=== PATIENT | male | born 1935 | race African-American/Black ===

== ENCOUNTER 2019-11-06 12:48 | Inpatient (IN) | payer OTHER ==
[~2019-11-06] VITALS: Ht 157.5 cm; Wt 62.6 kg
[2019-11-06 13:09] VITALS: BP 108/54
[2019-11-06 13:45] LABS: ABSOLUTE NEUTROPHILS 8.7 thou/uL (1.4-8.2); BASOPHILS 0.3 % (0.0-2.0); EOSINOPHILS 1.9 % (0.0-3.0); HEMATOCRIT 26.4 % (42.0-52.0); LYMPHOCYTES 6.6 % (24.0-44.0); MCH 32.2 pg (26.0-34.0); MCV 94.6 fL (80.0-100.0); PLATELET COUNT 264 thou/uL (150-400); POLYS 82.2 % (36.0-66.0); RBC 2.79 mil/uL (4.50-6.00); RDW 13.9 % (10.5-14.5); WBC 10.5 thou/uL (4.0-11.0)
[2019-11-06 13:59] LABS: ALBUMIN 3.3 g/dL (3.4-5.0); CREATININE 1.3 mg/dL (0.7-1.3); TOTAL BILIRUBIN 0.5 mg/dL (0.2-1.0); TOTAL PROTEIN 7.2 g/dL (6.4-8.2)
[2019-11-06 14:02] LABS: POTASSIUM 2.6 mmol/L (3.5-5.1)
[2019-11-06 15:20] LABS: URINE BILIRUBIN NEGATIVE (Negative); URINE BLOOD NEGATIVE (Negative); URINE CLARITY CLEAR; URINE COLOR YELLOW; URINE GLUCOSE-RANDOM* NEGATIVE (Negative); URINE KETONES NEGATIVE (Negative); URINE LEUKOCYTES-REFLEX NEGATIVE (Negative); URINE NITRITE-REFLEX NEGATIVE (Negative); URINE PROTEIN (DIPSTICK) NEGATIVE (Negative); URINE SPECIFIC GRAVITY 1.015 (1.005-1.035); URINE UROBILINOGEN 0.2 E.U./dl (0.2-1.0)
[2019-11-06 16:51] VITALS: BP 151/66
[2019-11-06 17:30] LABS: % SATURATION 13 % (20-39); IRON 18 ug/dL (65-175); TIBC 135 ug/dL (250-450)
[2019-11-06 17:54] VITALS: BP 152/76
[2019-11-06 17:59] LABS: FOLIC ACID 12.4 ng/mL (8.6-58.9)
[2019-11-06 18:37] VITALS: BP 150/60
--- NOTE | 2019-11-06 19:38 | NUR ---
RECIEVED REPORT FROM MINH RN AT APPROX 1800; WILL PASS ON TO GRANT RN. PAATIENT IS LYING COMFORTBALY IN BED WITH TV ON. POTASSIUM INFISING ON L UPPER ARM
--- NOTE | 2019-11-07 02:16 | NUR ---
ASSUMED CARE OF PT AT 1900. PT IS A/O X3 WITH FORGETFULLNESS. PT IS UP WITH ASSIST/SBA WITH A CANE. ROOM AIR, SR ON THE MONITOR WITH PAC'S, USES THE URINAL OR TOILET TO VOID, LAST BOWEL MOVEMENT WAS TONIGHT. SKIN APPEARS TO BE VERY DRY. SCRATCHING SKIN TO THE POINT OF CAUSING SMALL ABRAISIONS. BARRIER CREAM AND LOTION APPLIED. PT ACCIDENTALLY DISLODGED IV DUE TO EXCESSIVE SCRATCHING WITH CATHETER INTACT. IV REPLACED. AT THIS TIME PT IS CURRENTLY LYING IN HIS BED AND APPEARS TO BE SLEEPING. FALL PRECAUTIONS ARE IN PLACE, CALL LIGHT IS WITHIN REACH. WILL CONTINUE TO MONITOR.
[2019-11-07 05:36] LABS: ABSOLUTE NEUTROPHILS 9.6 thou/uL (1.4-8.2); BASOPHILS 0.6 % (0.0-2.0); EOSINOPHILS 1.7 % (0.0-3.0); HEMATOCRIT 26.7 % (42.0-52.0); HEMOGLOBIN 8.6 gm/dL (14.0-18.0); LYMPHOCYTES 7.8 % (24.0-44.0); MCH 30.7 pg (26.0-34.0); MCHC 32.4 g/dL (28.0-37.0); MCV 94.9 fL (80.0-100.0); MONOCYTES 8.5 % (1.0-8.0); PLATELET COUNT 254 thou/uL (150-400); POLYS 81.4 % (36.0-66.0); RBC 2.82 mil/uL (4.50-6.00); RDW 14.4 % (10.5-14.5); WBC 11.8 thou/uL (4.0-11.0)
[2019-11-07 06:02] LABS: CALCIUM 8.1 mg/dL (8.5-10.1); CREATININE 1.2 mg/dL (0.7-1.3); MAGNESIUM 1.6 mg/dL (1.8-2.4)
[2019-11-07 09:47] VITALS: BP 126/64
[2019-11-07 16:28] VITALS: BP 158/76
[2019-11-07 19:19] VITALS: BP 142/76
--- NOTE | 2019-11-07 19:40 | NUR ---
Assumed pt care at 7am.Pt in bed resting without c/o.Assessment completed.vss. Bs swallow study done and recommended given by speech therapist noted.Dr Barrera here,order noted.Assisted with tray setup.Good appetite noted.Complete bath and bed change done later this shift.Pt dpoa here,updates given.Pt has bm x2 today.Fall bundle in place for safety.Will continue to monitor.
--- NOTE | 2019-11-08 00:30 | NUR ---
ASSUMED CARE OF PT AT 1900. PT IS A/O X3 AND UP WITH SBA TO THE BR USING A CANE OR WALKER. PT C/O OF NOT LIKING THE TASTE OF THICKENED LIQUIDS AND WANTS REGULAR FLUIDS. EDUCATED THE PT ON THE IMPORTANCE AND RISKS AND BENEFITS. HE AGREES TO CONTINUE ON THICKENED FOR NOW. PT DENIES ANY TYPE OF PAIN OR DISCOMFORT. VOIDS PER URINAL. LYING IN BED AT THIS TIME AND APPEARS TO BE SLEEPING. FALL PRECAUTIONS ARE IN PLACE, CALL LIGHT IS WITHIN REACH. COVID TEST DONE AND TAKEN TO LAB. RESULTS ARE PENDING AT THIS TIME. WILL CONTINUE TO MONITOR.
[2019-11-08 05:26] LABS: CALCIUM 8.1 mg/dL (8.5-10.1); CREATININE 1.1 mg/dL (0.7-1.3); POTASSIUM 4.2 mmol/L (3.5-5.1)
[2019-11-08 08:00] VITALS: BP 98/57
[2019-11-08 19:15] VITALS: BP 127/68
[2019-11-09 03:42] VITALS: BP 146/82
--- NOTE | 2019-11-09 05:17 | NUR ---
PT IS ORIENTED X2-3, BUT VERY FORGETFUL. DENIED ANY PAIN. PT DID NOT SLEEP MUCH DURING THE NIGHT, CALLING OUT FREQUENTLY WITH VARIOUS REQUESTS. HE STATED HE WAS NOT TIRED ENOUGH TO SLEEP. VOIDS PER URINAL. PT HAD 2 BOWEL MOVEMENTS DURING THE NIGHT. FALL PRECAUTIONS IN PLACE. PROGRESSING SLOWLY TOWARD POC GOALS.
[2019-11-09 07:09] VITALS: BP 141/82
--- NOTE | 2019-11-09 08:07 | EKG ---
[facility] [place] [address] [place] [address] ELECTROCARDIOGRAM REPORT Name: ISH FRANKEL Room #: 453-P ADM IN M.R.#: [id number] Admission: 11/06/19 Attend Phys: Curt Barrera MD Discharge: Date of : 34 Report #: [id number] THIS REPORT FOR: cc: Pedro Grove MD, Steven A. MD Santiago, Patrick MD [facility] ~ THIS REPORT FOR: //name// [facility] ED Test Date: 2019-11-06 Test Time: 13:10:51 Pat Name: ISH FRANKEL Department: Room: [facility] Gender: M Fruit Dumper: : 1935 Requested By: Alan Douglass Order Number: [id number] MD: Antelmo Lee Measurements Intervals [place] Rate: 80 P: AL: QRS: 17 QRSD: 138 T: -22 QT: 336 QTc: 388 Interpretive Statements Significant artifact. Recommend repeating Electronically Signed On 11-09-2019 8:06:52 CDT by Antelmo Lee [email or web address] <ELECTRONICALLY SIGNED> By: Antelmo Lee MD, [facility] 11/09/19 0806 1310 1310 Antelmo Lee MD, FACC /EPI
[2019-11-09 09:31] LABS: CALCIUM 8.9 mg/dL (8.5-10.1); CREATININE 1.3 mg/dL (0.7-1.3); POTASSIUM 4.8 mmol/L (3.5-5.1)
[2019-11-09] MEDS ORDERED: COLACE 100 MG100 MG PO (10:13)
[2019-11-09] MEDS ORDERED: AUGMENTIN 500-1 EACH PO (10:13)
[2019-11-09] MEDS ORDERED: B-12500 MCG PO (10:14)
[2019-11-09] MEDS ORDERED: PROTONIX 20 MG20 M1 PO (10:14)
[2019-11-09 15:12] VITALS: BP 120/63
--- NOTE | 2019-11-09 15:25 | NUR ---
PT ADMITTED RELATED TO DEHYDRATION, HYPOKALEMIA. CM REVIEWED CHART AND SPOKE WITH CARE TEAM. CM CALLED AND SPOKE WITH PT OVER THE PHONE THIS AM. PT APPREATED TO BE A&O X4. CM ROLE INTRODUCED. PT INDICATED HE LIVES IN HOUSE WITH HIS JESSI AND APOLINAR. PT INDICATED 2 STEPS TO ENTER AND 12 INSIDE. PT INDICATED HE HAS A FWW AND A SPC FOR USE AT HOME. PT IS RECEPTIVE TO CARE TEAM'S RECOMENDTION FOR POST ACUTE CARE STAY AND ASKED THAT CM SPEAK WITH HIS JESSI REGARDING FACILTIES. ONLY CONTACT LISTED IS HIS NIECE. CM TO CALL HER. CM TO FOLLOW INDICATED WITH DC PLANNING.
[2019-11-09] MEDS ORDERED: CARBIDOPA-LEVO1 EAC9 PO (15:46)
--- NOTE | 2019-11-09 18:32 | NUR ---
ASSUMED PT CARE THIS AM. PT VITAL SIGNS STABLE. PT A&0X2-3, CONFUSION NOTED THROUGHOUT SHIFT, PT CALLED WHEN NEEDED, [employer]. PT UP TO COMMODE. TRACE LOWER EXTREMITY EDEMA NOTED. PT ON TELE, RECORDED. SPEECH EVAL COMPLETED DURING THIS SHIFT. NO PAIN NOTED. PT PLEASANT, USES URINAL. ENDORSED TO NIGHT NURSE.
[2019-11-09 19:13] VITALS: BP 141/63
[2019-11-09 19:20] VITALS: BP 152/90
[2019-11-10 07:38] VITALS: BP 171/92
--- NOTE | 2019-11-10 07:49 | NUR ---
ASSUMED PT CARE AROUND 1930. IMPULSIVE AT TIMES TO GET UP. EASILY REORIENTED. KEPT NPO FOR MRI IN AM. VSS. NO S/S ACUTE DISTRESS NOTED OR REPORTED AT THIS TIME. CARE TRANSFERRED TO AM RN AT THIS TIME.
[2019-11-10 10:45] VITALS: BP 104/66
--- NOTE | 2019-11-10 13:33 | NUR ---
CM FOLOWED UP WITH PT'S NIECE THIS AM TO SEE IF SHE HAD SPOKEN WITH PT'S JESSI REGARDING WHICH FACILITIES THEY WANTED REFERRALS SENT TO FOR POSSIBEL ADMISSION. CHASTITY INDICATED THAT THEY WOULD PREFER PT TO RETURN HOME WITH HOME HEALTH SERVICES RATHER THAN GO TO A FACILITY DUE TO COVID. CM INDICATED THAT CM WOULD NOTIFY PHYSICIAN AND CARE TEAM AND SEE IF THEY FELT THAT WOULD BE APPROPRIATE AND CALL HER BACK. CM NOTIFIED PHYSICIAN OF FAMILY PREFERENCE HE WAS GOING TO REACH OUT TO THEM RELATED TO THE RESULTS OF PT'S MRI TODAY. ANNMARIE INDICATED THEY DIDN'T WANT [facility]. CM TO FOLLOW INDICATED WITH DC PLANNING.
[2019-11-10 14:49] LABS: HEMATOCRIT 27.7 % (42.0-52.0); HEMOGLOBIN 9.1 gm/dL (14.0-18.0); MCH 31.5 pg (26.0-34.0); MCHC 32.7 g/dL (28.0-37.0); MCV 96.2 fL (80.0-100.0); RBC 2.88 mil/uL (4.50-6.00); RDW 14.1 % (10.5-14.5)
[2019-11-10 15:18] VITALS: BP 139/75
--- NOTE | 2019-11-10 18:19 | NUR ---
ASSUMED PT CARE THIS AM. PT ALERT TO SELF, WITH CONFUSION DURING THE DAY ABOUT PLACE, SITUATION. PT BP ELEVATED THIS AM, BUT WHEN STAFF RETOOK BP IT WAS WITHIN NORMAL LIMITS. PT HAD A MRI TODAY. PT ON TELE, RECORDED. IV PATENT. MEDICATIONS TOLERATED WELL. PT ON NECTAR THICKENED LIQUIDS AND MECHANICAL ALTERED DIET WITH NO ISSUES. ENDORSED TO NIGHT NURSE.
[2019-11-10 20:00] VITALS: BP 135/64
--- NOTE | 2019-11-11 05:57 | NUR ---
ASSUMED CARE OF PT AT 1900. PT IS A/O X2 AND IS UP WITH ASSIST TO THE BR OR BSC. PT DENIES PAIN OR DISCOMFORT. VSS. INCONT AT TIMES OF URINE AND BOWEL. C/O BEING THIRSTY. DRINKS PROVIDED. ROOM AIR, SR ON THE MONITOR. FALL PRECAUTIONS ARE IN PLACE, CALL LIGHT IS WITHIN REACH. AT THIS TIME PT IS LYING IN HIS BED WITH HOB ELEVATED AND APPEARS TO BE SLEEPING. WILL CONTINUE TO MONITOR.
[2019-11-11 08:30] VITALS: BP 125/60; BP 135/64
[2019-11-11] MEDS ORDERED: VITAMIN E1000 UNIT PO (13:53)
[2019-11-11] MEDS ORDERED: VITAMIN D31250 MC1 PO (13:55)
[2019-11-11 14:18] VITALS: BP 135/64
[2019-11-11 14:33] VITALS: BP 135/64
--- NOTE | 2019-11-11 14:35 | NUR ---
CARE TEAM INDICATED THAT PT IS MEDICALLY STABLE TO DC HOME THIS DAY. PT IS TO HAVE HOME HEALTH SERVICES PT, OT, ST, AND NURSING. FAMILY INDICATED THAT THEY DIDN'T HAVE A PREFERENCE BUT DIDN'T WANT [facility]. REFERRAL [facility] SENT TO [facility]. THEY ARE ABLE TO ACCEPT. THEY WILL CONTACT PT AND FAMILY TO SET UP INITIAL ASSESSMENT VISIT FOR SOC EITHER TOMORROW OR SATURDAY. PT'S BROTHER IN LAW WILL BE PROVIDING PT TRNASPORT HOME THIS AFTERNOON AROUND 1630. ORDERS FAXED. NO OTHER CM INTERVENTION INIDCATED CASE CLOSED.
--- NOTE | 2019-11-11 14:37 | NUR ---
FAXED REFERRAL TO [facility] SPOKE WITH PASCUAL IN INTAKE SHE RECEIVED REFERRAL AND WILL ACCEPT. FAXED DC ORDERSS/SUMMARY RECEIVED CONFIRMATION AND [facility] WILL CALL PT TO ARRANGE VISITS.
[2019-11-11 15:25] VITALS: BP 135/64
--- NOTE | 2019-11-11 16:57 | NUR ---
PATIENT LEFT UNIT AT 1705 W FAMILY MEMBER. IV DISCONTINUED W BANDAID IN PLACE. D/C INSTRUCTIONS GIVEN TO CAREGIVER. DENIED ANY NEEDS AT TIME OF DISCHARGE.
--- NOTE | 2019-11-11 20:15 | NUR ---
I AGREE WITH NURSING ASSESSMENT DONE BY HUMBERTO/CLOTHES SEPARATOR.
[2019-11-12] MEDS ORDERED: CARBIDOPA-LEVO1 EAC9 PO (10:55)
[2019-11-12] MEDS ORDERED: AUGMENTIN 875-1 EACH PO (11:11)
== END 2019-11-11 17:47 | disposition home health service (06) | DRG 70 ==
LOC: ER 12:48 → 4W 16:26 → EROBS 16:26 → 4W 18:01
PROVIDERS: Emergency Medicine; Nurse Practitioner; Nurse Practitioner Family; ADMIT Hospitalist; ATTEND Hospitalist
DX: G93.41 Metabolic encephalopathy (principal); J18.9 Pneumonia, unspecified organism; E87.6 Hypokalemia; E86.0 Dehydration; R53.1 Weakness; R53.81 Other malaise; E53.8 Deficiency of other specified B group vitamins; E83.42 Hypomagnesemia; N40.0 Benign prostatic hyperplasia without lower urinary tract symptoms; K21.9 Gastro-esophageal reflux disease without esophagitis; I10 Essential (primary) hypertension; E78.5 Hyperlipidemia, unspecified; R62.7 Adult failure to thrive; D63.8 Anemia in other chronic diseases classified elsewhere; R13.10 Dysphagia, unspecified; G20 Parkinson's disease; F02.80 Dementia in other diseases classified elsewhere, unspecified severity, without behavioral disturbance, psychotic disturbance, mood disturbance, and anxiety; K86.89 Other specified diseases of pancreas; R22.9 Localized swelling, mass and lump, unspecified; Z20.828 Contact with and (suspected) exposure to other viral communicable diseases; Z85.46 Personal history of malignant neoplasm of prostate; Z68.25 Body mass index [BMI] 25.0-25.9, adult; Z86.73 Personal history of transient ischemic attack (TIA), and cerebral infarction without residual deficits
CPT/HCPCS: 10045

== ENCOUNTER 2019-12-08 19:26 | Emergency (ER) | payer OTHER ==
[~2019-12-08] VITALS: Ht 175.3 cm; Wt 59.0 kg
[~2019-12-08 19:26] MED LIST: AUGMENTIN 500-1 EACH PO; AUGMENTIN 875-1 EACH PO; B-12500 MCG PO; CARBIDOPA-LEVO1 EAC9 PO; COLACE 100 MG100 MG PO; PROTONIX 20 MG20 M1 PO; VITAMIN D31250 MC1 PO; VITAMIN E1000 UNIT PO
[2019-12-08 20:27] LABS: ABSOLUTE NEUTROPHILS 5.3 thou/uL (1.4-8.2); BASOPHILS 0.4 % (0.0-2.0); EOSINOPHILS 4.6 % (0.0-3.0); HEMATOCRIT 35.5 % (42.0-52.0); HEMOGLOBIN 11.4 gm/dL (14.0-18.0); LYMPHOCYTES 13.2 % (24.0-44.0); MCHC 32.2 g/dL (28.0-37.0); MCV 99.4 fL (80.0-100.0); MONOCYTES 10.5 % (1.0-8.0); POLYS 71.3 % (36.0-66.0); RBC 3.57 mil/uL (4.50-6.00); RDW 15.3 % (10.5-14.5); WBC 7.5 thou/uL (4.0-11.0)
[2019-12-08 20:44] LABS: PLATELET COUNT 193 thou/uL (150-400)
[2019-12-08 20:47] LABS: LARGE PLATELETS OCCASIONAL
[2019-12-08 21:07] LABS: ALBUMIN 3.5 g/dL (3.4-5.0); CALCIUM 9.4 mg/dL (8.5-10.1); CREATININE 1.7 mg/dL (0.7-1.3); TOTAL BILIRUBIN 0.3 mg/dL (0.2-1.0); TOTAL PROTEIN 7.8 g/dL (6.4-8.2)
[2019-12-08 21:15] LABS: URINE BILIRUBIN NEGATIVE (Negative); URINE BLOOD TRACE (Negative); URINE CLARITY CLEAR; URINE COLOR YELLOW; URINE GLUCOSE-RANDOM* NEGATIVE (Negative); URINE KETONES NEGATIVE (Negative); URINE LEUKOCYTES-REFLEX NEGATIVE (Negative); URINE NITRITE-REFLEX NEGATIVE (Negative); URINE PROTEIN (DIPSTICK) 1+ (Negative); URINE UROBILINOGEN 0.2 E.U./dl (0.2-1.0)
[2019-12-08 21:22] LABS: BACTERIA-REFLEX None Seen /HPF (None Seen); CRYSTALS None Seen /LPF (None Seen); HYALINE CASTS 0-3 Few /LPF (None Seen); SQUAMOUS None Seen /LPF (0-3); URINE RBC 0-2 Rare /HPF (0-2); URINE WBC-REFLEX 0-5 Rare /HPF (0-5)
[2019-12-08 22:20] VITALS: BP 149/92
== END 2019-12-08 22:22 | disposition home or self-care (01) ==
LOC: ER 19:26
PROVIDERS: Physician Assistant
DX: E86.0 Dehydration (principal); N17.9 Acute kidney failure, unspecified; I10 Essential (primary) hypertension; E78.5 Hyperlipidemia, unspecified; Z79.899 Other long term (current) drug therapy

== ENCOUNTER 2019-12-22 08:19 | Emergency (ER) | payer OTHER ==
[~2019-12-22] VITALS: Ht 175.3 cm; Wt 59.0 kg
--- NOTE | ~2019-12-22 | EMS ---
[address] [address] EMS Patient Care Report Name: ISH FRANKEL Room #: REG [facility]ILL[facility] uRiz#: [id number] Admission: 12/22/19 Attend Phys: Discharge: Date of : 34 Report #: [id number] THIS REPORT FOR: //name// Report Transmitted: 12/22/2019 08:33 EMS Care Summary [place], [place]/[facility] Incident [id number] @ 12/22/2019 07:39 Incident Location [address] [place], [place] [id number] Patient ISH FRANKEL Male, 84 Years 1935 Patient Address [address] [place], [place] [id number] Patient History Dementia,Hypertension (HTN),Parkinson's Disease,Hyperlipidemia,Arthritis,Bone Cancer,Bronchitis Chronic,Pneumonia,Anemia,Hypotension,Hypothyroidism,Prostate Cancer,Chronic Kidney Disease,Cellulitis, Patient Allergies Penicillin allergy, Patient Medications Multivitamin, Omeprazole, Carbidopa, Loratadine, Losartan, Aspirin, Atorvastatin, Chief Complaint BACK PAIN Disposition Transported No Lights/[place] Dispatch Reason Back Pain (Non-Traumatic) Transported To [facility] Narrative DISPATCHED TO A BACK PAIN. ARRIVED ON SCENE TO [place] [address] EMS Patient Care Report Name: ISH FRANKEL Room #: REG ER Sara#: [id number] Admission: 12/22/19 Attend Phys: Discharge: Date of : 34 Report #: [id number] FAMILY TO FIND MALE PATIENT SITTING IN A RECLINER IN HIS BEDROOM. PATIENT SAID THAT HE WAS HAVING BACK PAIN AFTER A FALL SOMETIME LAST NIGHT. HE WAS UNABLE TO SAY HOW LONG AGO THE FALL WAS BUT SAID THAT HE WAS ABLE TO GETHIMSELF UP AND SIT IN HIS CHAIR. PATIENT SAID PAIN WAS IN HIS LEFT THORACIC AREA AND FELT LIKE NEEDLES BUT DID NOT GO ANYWHERE ELSE. HIS VITALS WERE OBTAINED THEN HE WAS ASSISTED IN STANDING AND SITTING ON THE STAIR CHAIR, SECURED WITH STRAPS AND MOVED TO THE COT AT THE FRONT DOOR. PATIENT WAS THEN ASSISTED IN STANDING AND SITTING ON THE COT, SECURED WITH STRAPS, AND MOVED TO THE AMBULANCE. PATIENT VITALS WERE REOBTAINED AND HE WAS TRANSPORTED TO THE HOSPITAL. HIS VITALS WERE MONITORED ENROUTE. UPON ARRIVAL AT THE HOSPITAL PATIENT WAS MOVED INTO THE ED ROOM 3 ON THE COT AND LIFTED OVER TO THE HOSPITAL BED. PATIENT CARE WAS TURNED OVER TO ED NURSING STAFF. Initial Vitals @07:59P: 84,BP: 174/101,CO: 19,SpO2: 98, @07:50P: 75,R: 16,BP: 161/66,Pain: 6/10,GCS: 15,CO: 9,SpO2: 96,Revised Trauma: 12, @08:10P: 78,R: 16,BP: 181/60,Pain: 6/10,GCS: 15,SpO2: 95,Revised Trauma: 12, Assessments @07:48MENTAL:Person Oriented,Time Oriented,Place Oriented,Event Oriented,SKIN:HEENT:Head/Face: No Abnormalities,Neck/Airway: No Abnormalities,LUNG SOUNDS:General: No Abnormalities,Left Upper: No Abnormalities,Right Upper: No Abnormalities,Left Lower: No Abnormalities,Right Lower: No Abnormalities,ABDOMEN:General: No Abnormalities,Left Upper: No Abnormalities,Right Upper: No Abnormalities,Left Lower: No Abnormalities,Right Lower: No Abnormalities,PELVIS//GI:No Abnormalities,EXTREMITIES:Left Leg: Weakness,Right Leg: Weakness,Capillary Refill: Right Upper: < 2 Sec,Left Arm: No Abnormalities,Right Arm: No Abnormalities,PULSE:Radial: 2+ Normal,NEURO:No Abnormalities, Impression Back Pain Procedures @07:48ALS AssessmentResponse: UnchangedSucceeded Timeline 07:36,Call Received 07:36,Dispatch Notified 07:39,Dispatched 07:40,En Route 07:45,On Scene 07:48,At Patient 07:48,ALS Assessment,Response: UnchangedSucceeded, 07:50,BP: 161/66 M,PULSE: 75,RR: 16 R,SPO2: 96 Ox,ETCO2: ,BG: ,PAIN: 6,GCS: 15, [address] [address] EMS Patient Care Report Name: ISH FRANKEL Room #: REG Sara#: [id number] Admission: 12/22/19 Attend Phys: Discharge: Date of : 34 Report #: [id number] 07:59,BP: 174/101 M,PULSE: 84,RR: R,SPO2: 98 Ox,ETCO2: ,BG: ,PAIN: ,GCS: , 08:01,Depart Scene 08:10,BP: 181/60 M,PULSE: 78,RR: 16 R,SPO2: 95 Ox,ETCO2: ,BG: ,PAIN: 6,GCS: 15, 08:15,At Destination 08:26,Call Closed Disclaimer v1.1 Copyright 2020 Handle This EMS Care Summary contains data elements from the applicable legal record (which may be displayed differently). It is designed to provide pertinent information for the following purposes: continuity of care, clinical quality, and state data reporting. The complete legal record is available to ED staff and administrators of the receiving hospital in [employer] Patient Tracker. All data is provided "as is."
[2019-12-22 12:09] LABS: URINE BILIRUBIN NEGATIVE (Negative); URINE BLOOD NEGATIVE (Negative); URINE CLARITY CLEAR; URINE COLOR YELLOW; URINE GLUCOSE-RANDOM* NEGATIVE (Negative); URINE KETONES NEGATIVE (Negative); URINE LEUKOCYTES-REFLEX NEGATIVE (Negative); URINE NITRITE-REFLEX NEGATIVE (Negative); URINE PROTEIN (DIPSTICK) TRACE (Negative); URINE SPECIFIC GRAVITY 1.025 (1.005-1.035); URINE UROBILINOGEN 0.2 E.U./dl (0.2-1.0)
[2019-12-22 12:19] LABS: ANION GAP 11 mmol/L (7-16); BUN 19 mg/dL (7-18); CALCIUM 8.7 mg/dL (8.5-10.1); CHLORIDE 108 mmol/L (98-107); CO2 20 mmol/L (21-32); CREATININE 1.4 mg/dL (0.7-1.3); GLUCOSE 92 mg/dL (74-106); POTASSIUM 3.2 mmol/L (3.5-5.1); SODIUM 139 mmol/L (136-145)
[2019-12-22 12:36] LABS: HEMATOCRIT 32.5 % (42.0-52.0); HEMOGLOBIN 10.5 gm/dL (14.0-18.0); MCH 31.8 pg (26.0-34.0); MCHC 32.2 g/dL (28.0-37.0); MCV 98.6 fL (80.0-100.0); PLATELET COUNT 187 thou/uL (150-400); RDW 14.2 % (10.5-14.5); WBC 9.2 thou/uL (4.0-11.0)
--- NOTE | 2019-12-22 12:37 | EKG ---
[facility] [place] [address] ELECTROCARDIOGRAM REPORT Name: ISH FRANKEL Room #: REG [facility]#: [id number] Admission: 12/22/19 Attend Phys: Discharge: Date of : 34 Report #: [id number] THIS REPORT FOR: cc: Pedro Grove MD, Steven A. 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: : 1935 Requested By: Ish Valentine Order Number: [id number] MD: Antelmo Lee Measurements Intervals [place] Rate: 77 P: [place]: QRS: 10 QRSD: 88 T: 14 QT: 469 QTc: 531 Interpretive Statements NSR, artifact Ventricular premature complex Consider left ventricular hypertrophy Borderline prolonged QT interval Artifact in lead(s) II,aVR,aVF,V1,V4,V5,V6 Compared to ECG 11/06/2019 13:10:51 Ventricular premature complex(es) now present Electronically Signed On 12-22-2019 12:36:57 HOUSEHOLD APPLIANCE ASSEMBLER by Antelmo Lee [email or web address] <ELECTRONICALLY SIGNED> By: Antelmo Lee MD, FACC 12/22/19 1236 02 02 Antelmo Lee MD, FACC /EPI
[2019-12-22 12:38] LABS: ALBUMIN 2.7 g/dL (3.4-5.0); DIRECT BILIRUBIN 0.2 mg/dL (<0.1-0.2); LIPASE 80 U/L (73-393); SGOT 20 U/L (15-37); SGPT < 6 U/L (30-65); TOTAL BILIRUBIN 0.5 mg/dL (0.2-1.0); TOTAL PROTEIN 6.5 g/dL (6.4-8.2); TROPONIN-I <0.06 ng/mL (<0.06)
[2019-12-22 13:07] LABS: ABSOLUTE NEUTROPHILS 6.7 thou/uL (1.4-8.2); PLATELET ESTIMATE NORMAL
[2019-12-22] MEDS ORDERED: ULTRAM 50MG TAB50 MG PO (14:48)
[2019-12-22] MEDS ORDERED: LEVOFLOXACIN500 MG PO (14:54)
[2019-12-22 15:31] VITALS: BP 177/78
== END 2019-12-22 15:43 | disposition home or self-care (01) ==
LOC: ER 08:19
PROVIDERS: Emergency Medicine
DX: R07.89 Other chest pain (principal); K86.2 Cyst of pancreas; R41.0 Disorientation, unspecified; F03.90 Unspecified dementia, unspecified severity, without behavioral disturbance, psychotic disturbance, mood disturbance, and anxiety; I10 Essential (primary) hypertension; E78.5 Hyperlipidemia, unspecified; Z79.899 Other long term (current) drug therapy; W18.30XA Fall on same level, unspecified, initial encounter; Y93.89 Activity, other specified; Y92.89 Other specified places as the place of occurrence of the external cause; Y99.9 Unspecified external cause status

== ENCOUNTER 2020-01-14 11:10 | Emergency (ER) | payer OTHER ==
[~2020-01-14] VITALS: Ht 177.8 cm; Wt 60.3 kg
[~2020-01-14 11:10] MED LIST changes: +LEVOFLOXACIN500 MG PO; +ULTRAM 50MG TAB50 MG PO
[2020-01-14 11:52] LABS: INR 1.1; PROTIME 11.3 Seconds (9.3-11.4)
[2020-01-14 11:53] LABS: ANION GAP 8 mmol/L (7-16); BUN 18 mg/dL (7-18); CALCIUM 8.7 mg/dL (8.5-10.1); CHLORIDE 106 mmol/L (98-107); CO2 26 mmol/L (21-32); CREATININE 1.7 mg/dL (0.7-1.3); GLUCOSE 90 mg/dL (74-106); SODIUM 140 mmol/L (136-145)
[2020-01-14 11:55] LABS: POTASSIUM 4.1 mmol/L (3.5-5.1)
[2020-01-14 11:57] LABS: BASOPHILS 1.1 % (0.0-2.0); EOSINOPHILS 5.5 % (0.0-3.0); HEMATOCRIT 29.7 % (42.0-52.0); HEMOGLOBIN 9.6 gm/dL (14.0-18.0); LYMPHOCYTES 11.3 % (24.0-44.0); MCH 30.6 pg (26.0-34.0); MCHC 32.3 g/dL (28.0-37.0); MCV 94.8 fL (80.0-100.0); MONOCYTES 9.7 % (1.0-8.0); PLATELET COUNT 247 thou/uL (150-400); POLYS 72.4 % (36.0-66.0); RBC 3.14 mil/uL (4.50-6.00); RDW 13.4 % (10.5-14.5); WBC 6.9 thou/uL (4.0-11.0)
[2020-01-14 12:03] LABS: ALBUMIN 2.8 g/dL (3.4-5.0); SGOT 19 U/L (15-37); SGPT 8 U/L (30-65); TOTAL BILIRUBIN 0.6 mg/dL (0.2-1.0); TOTAL PROTEIN 7.5 g/dL (6.4-8.2); TROPONIN-I <0.06 ng/mL (<0.06)
[2020-01-14] MEDS ORDERED: LOSARTAN POTASS50 MG PO (12:03)
[2020-01-14] MEDS ORDERED: OMEPRAZOLE 20 M20 M1 PO (12:03)
[2020-01-14] MEDS ORDERED: ATORVASTATIN CA10 MG PO (12:03)
--- NOTE | 2020-01-14 12:47 | EKG ---
[facility] [place] [address] ELECTROCARDIOGRAM REPORT Name: ISH FRANKEL Room #: REG [facility].#: [id number] Admission: 01/14/20 Attend Phys: Discharge: Date of : 34 Report #: [id number] THIS REPORT FOR: cc: Pedro Grove MD, Steven A. MD Santiago,Antelmo [facility] ~ THIS REPORT FOR: //name// [facility] ED Test Date: 2020-01-14 Test Time: 11:49:48 Pat Name: ISH FRANKEL Department: Room: Gender: Barrow Worker: james : 1935 Requested By: Phuong Delgado Order Number: [id number] MD: Antelmo Lee Measurements Intervals [place] Rate: 116 P: 59 MT: 165 QRS: 28 QRSD: 98 T: 147 QT: 460 QTc: 640 Interpretive Statements Sinus tachycardia Paired ventricular premature complexes LVH with secondary repolarization abnormality Prolonged QT interval Baseline wander in lead(s) I,II,aVR Compared to ECG 12/22/2019 11:03:13 Early repolarization now present Electronically Signed On 01-14-2020 12:46:46 DRILL SETUP OPERATOR by Antelmo Lee [email or web address] <ELECTRONICALLY SIGNED> By: Antelmo Lee MD, FACC 01/14/20 1246 1149 1149 Antelmo Lee MD, FAC /EPI
[2020-01-14 13:10] LABS: URINE BILIRUBIN NEGATIVE (Negative); URINE BLOOD NEGATIVE (Negative); URINE CLARITY CLEAR; URINE COLOR YELLOW; URINE GLUCOSE-RANDOM* NEGATIVE (Negative); URINE KETONES NEGATIVE (Negative); URINE LEUKOCYTES-REFLEX NEGATIVE (Negative); URINE NITRITE-REFLEX NEGATIVE (Negative); URINE PROTEIN (DIPSTICK) NEGATIVE (Negative); URINE SPECIFIC GRAVITY 1.015 (1.005-1.035); URINE UROBILINOGEN 0.2 E.U./dl (0.2-1.0)
[2020-01-14 14:55] VITALS: BP 187/88
== END 2020-01-14 14:55 | disposition home or self-care (01) ==
LOC: ER 11:10
PROVIDERS: Physician Assistant
DX: R53.1 Weakness (principal); I10 Essential (primary) hypertension; E78.5 Hyperlipidemia, unspecified; Z79.899 Other long term (current) drug therapy

== ENCOUNTER 2020-07-22 01:08 | Inpatient (IN) | payer OTHER ==
[~2020-07-22] VITALS: Ht 175.3 cm; Wt 66.7 kg
[2020-07-22] VITALS (7 sets, daily range): BP systolic 109–169; BP diastolic 60–78
--- NOTE | ~2020-07-22 | HC ---
[facility] [place] [address] CONSULTATION Name: ISH FRANKEL Room #: 455-P ADM IN M.R.#: [id number] Admission: 07/22/20 Attend Phys: Jayden Figueroa MD Discharge: Date of : 34 Report #: [id number] THIS REPORT FOR: cc: Pedro Grove MD, Steven A. MD Al-Absi,Estrella Villavicencio MD ~ DOC #: [id number] Estrella Garcia MD REASON FOR CONSULTATION: Elevated creatinine. REASON FOR THE PRESENTATION: Brought by his family after a syncopal episode. HISTORY OF PRESENT ILLNESS: Obtained from the medical chart. The patient has dementia, Parkinson disease and is not able to provide me with any history. He is known to have hypertension. He was brought by his family members after being found down. No further details are available. He was found to have an elevated creatinine at 2.7. The patient was evaluated during the of 2019, three times during the month of November, December, January and at that time, his creatinine used to be anywhere from 1.4-1.7. I was consulted to manage his acute kidney injury. PAST MEDICAL HISTORY: 1. Hypertension. 2. Hyperlipidemia. 3. Parkinson disease. 4. Dementia. PAST SURGICAL HISTORY: Unobtainable due to the patient's current mental status. SOCIAL HISTORY: Unable to obtain due to the patient's current mental status. FAMILY HISTORY: Unable to obtain given the patient's current mental status. REVIEW OF SYSTEMS: Unable to obtain given the patient's current mental status. PHYSICAL EXAMINATION: VITAL SIGNS: Temperature 36.2, pulse rate is 59, blood pressure is 141/73. HEAD AND NECK: No jugular venous distention. CHEST: No crackles. CARDIOVASCULAR: No rubs detected. ABDOMEN: Soft, nontender. EXTREMITIES: Lower extremities, no edema with intact peripheral pulses. LABORATORY VALUES: From yesterday revealed a sodium of 144, potassium 4.3, BUN 30, creatinine of 2.7. [facility] [address] [place] [address] CONSULTATION Name: JOSTINISH Rivera Room #: 455-P ADM IN M.R.#: [id number] Admission: 07/22/20 Attend Phys: Jayden Figueroa MD Discharge: Date of : 34 Report #: [id number] revealed potential volvulus of the sigmoid. ASSESSMENT, IMPRESSION AND PLAN: 1. Acute kidney injury. 2. Chronic kidney disease. 3. Sigmoid volvulus. 4. Pancreatic mass. 5. The patient's acute kidney injury seems to be related to dehydration episode. 6. Status post flexible sig. Decompression was performed. 7. Continue with IV fluid. 8. Hold blood pressure medications. 9. Monitor renal function. 10. We will continue to follow during his hospital stay. Estrella Garcia MD AIA/STAN By: 0455 1858 Estrella Garcia MD /lui
[~2020-07-22 01:08] MED LIST changes: +ATORVASTATIN CA10 MG PO; +LOSARTAN POTASS50 MG PO; +OMEPRAZOLE 20 M20 M1 PO
[2020-07-22 02:11] LABS: ABSOLUTE NEUTROPHILS 12.5 thou/uL (1.4-8.2); BASOPHILS 0.1 % (0.0-2.0); EOSINOPHILS 0.1 % (0.0-3.0); HEMATOCRIT 29.9 % (42.0-52.0); HEMOGLOBIN 9.7 gm/dL (14.0-18.0); LYMPHOCYTES 4.3 % (24.0-44.0); MCHC 32.3 g/dL (28.0-37.0); MCV 95.9 fL (80.0-100.0); MONOCYTES 6.2 % (1.0-8.0); PLATELET COUNT 195 thou/uL (150-400); POLYS 89.3 % (36.0-66.0); RBC 3.12 mil/uL (4.50-6.00); RDW 13.5 % (10.5-14.5)
[2020-07-22 02:12] LABS: URINE BILIRUBIN NEGATIVE (Negative); URINE BLOOD TRACE (Negative); URINE CLARITY CLEAR; URINE COLOR YELLOW; URINE GLUCOSE-RANDOM* NEGATIVE (Negative); URINE KETONES TRACE (Negative); URINE LEUKOCYTES-REFLEX NEGATIVE (Negative); URINE NITRITE-REFLEX NEGATIVE (Negative); URINE PROTEIN (DIPSTICK) NEGATIVE (Negative); URINE SPECIFIC GRAVITY 1.015 (1.005-1.035)
[2020-07-22 02:15] LABS: ANION GAP 15 mmol/L (7-16); BUN 30 mg/dL (7-18); CALCIUM 8.7 mg/dL (8.5-10.1); CHLORIDE 108 mmol/L (98-107); CO2 21 mmol/L (21-32); CREATININE 2.7 mg/dL (0.7-1.3); GLUCOSE 91 mg/dL (74-106); POTASSIUM 4.3 mmol/L (3.5-5.1); SODIUM 144 mmol/L (136-145)
[2020-07-22 02:26] LABS: ALBUMIN 3.2 g/dL (3.4-5.0); LIPASE 116 U/L (73-393); MAGNESIUM 1.8 mg/dL (1.8-2.4); SGOT 11 U/L (15-37); SGPT 12 U/L (30-65); TOTAL BILIRUBIN 0.8 mg/dL (0.2-1.0); TOTAL PROTEIN 7.4 g/dL (6.4-8.2); TROPONIN-I <0.06 ng/mL (<0.06)
[2020-07-22] MEDS ORDERED: PROTONIX 20 MG20 M1 PO (02:36)
--- NOTE | 2020-07-22 04:29 | NUR ---
EDMAR, PT SISTER IN LAW AND [facility]- [phone]
--- NOTE | 2020-07-22 05:51 | NUR ---
Attempted to call report to medical floor. Nurse is in room. Will call back.
[2020-07-22] MEDS ORDERED: CLARITIN10 M3 PO (05:58)
[2020-07-22] MEDS ORDERED: OMEPRAZOLE20 M2 PO (05:58)
[2020-07-22] MEDS ORDERED: ASA81BEC PO (05:58)
--- NOTE | 2020-07-22 07:06 | EKG ---
[place] [address] [address] [place] [address] ELECTROCARDIOGRAM REPORT Name: ISH FRANKEL Room #: 455-P ADM IN M.R.#: [id number] Admission: 07/22/20 Attend Phys: Nicholas Lemons Discharge: Date of : 34 Report #: [id number] [facility] ED Test Date: 2020-07-22 Test Time: 01:14:44 Pat Name: ISH FRANKEL Department: Room: 455 Gender: M Senior Control Systems Engineer: CHOLO : 1935 Requested By: Rosanne Lindsey Order Number: [id number] MD: Antelmo Lee Measurements Intervals [place] Rate: 85 P: 16 SC: 147 QRS: 24 QRSD: 63 T: -28 QT: 405 QTc: 482 Interpretive Statements NSR Probable left atrial enlargement Probable LVH with secondary repol abnrm Borderline prolonged QT interval Compared to ECG 01/14/2020 11:49:48 Sinus tachycardia no longer present Ventricular premature complex(es) no longer present Electronically Signed On 07-22-2020 7:06:04 CDT by Antelmo Lee [email or web address] <ELECTRONICALLY SIGNED> By: Antelmo Lee MD, [facility] 07/22/20 0706 3 Antelmo Lee MD, [facility] /EPI
--- NOTE | 2020-07-22 14:02 | NUR ---
PT ADMITTED RELATED TO NEAR SYNCOPE, ACUTE RENAL FAILURE, DEHYDRATION. CM REVIEWED CHART AND SPOKE WITH CARE TEAM. CM MET WITH PT AT BEDSIDE THIS DAY. PT APPEARS TO BE A&O 4. CM ROLE INTRODUCED. PT INDICATED HE LIVES IN A HOUSE WITH HIS JESSI AND APOLINAR. PT INDICATED THERE ARE 2 STEPS TO ENTER AND NONE HE HAS TO USE INSIDE. PT INDICATED HE HAS A FWW AND A CANE FOR HOME USE. PT INDICATED HIS PCP IS DR. ROCK CONTRERAS. CANDY CHHAYA IS PT'S DPOA AND LEAH PRATT IS HIS NIECE AND SHE IS ALSO VERY SUPPORTIVE AND INVOLVED IN HIS CARE. [facility]. PLAN WOULD BE FOR PT TO DC HOME ONCE MEDICALLY STABLE. PT'S DPOA IS GOING TO REACH OUT TO PCP'S OFFICE TO HAVE PAPERWORK FAXED TO UNIT. PT HAD SIGMOID COLONOSCOPY THIS DAY. CARE TEAM INDICATED LIKELY NO DC OVER THE WEEKEND. CM FOLLOWING REGARDING DC PLANNING.
--- NOTE | 2020-07-22 16:15 | NUR ---
ASSUMED CARE OF PATIENT AT SHIFT CHANGE. PATIENT ADMITTED FROM ED THIS MORNING FOR A NEAR SYCOPAL EPISODE, ACUTE RENAL INJURY AND DEHYDRATION. PATIENT IS RECIEVING FLUIDS ON R EJ AT 126 ML/HR W NO ISSUES. PATIENT VOIDING PER URINAL AND ALSO GETS UP SBA W GB AND WALKER AND TOLERATES WELL. PATIENT HAD A FLEX COLONOSCOPY THIS MORNING AND RETURNED AROUND NOON; SEE NOTES. BLOOD TINGED URINE NOTED THIS SHIFT; PATIENT WAS STRAIGHT CATHERIZED IN ED. PATIENT TOLERATED CLEAR LIQUIDS WELL; PROVIDER ADVANCED DIET. FAMILY VISITED W PATIENT EARLIER THIS DAY AND HELPED WITH ADMISSION. FALL PRECAUTIONS IN PLACE. PATIENT DOES USE CALL BUTTON INDICATED; A&OX2-3 WITH SOME NOTED FORGETFULNESS. ENDORSED TO RN; WILL CONTINUE TO MONITOR
--- NOTE | 2020-07-23 04:08 | NUR ---
Pt. rested quietly at intrvals during the night when checked on during frequent rounds. He offers no c/o pain. Ambulated to the bathroom with assist of one person,walker and gait belt. Bed alarm is on.
[2020-07-23 07:28] VITALS: BP 151/75
--- NOTE | 2020-07-23 10:53 | NUR ---
Received awake on bed. Due medications given as prescribed. On room air. Vital signs stable. On telemetry; no complains and signs of chest pain, crushing sensation and heaviness. Assisted in ADLs. On clear liquids, assisted and encouraged in eating and drinking; offered snacks as well; no nausea, no vomiting and no abdominal pain noted. Contient of bowel and bladder, able to go to the toilet with standby assist. Falls bundle in place. With NS at 126cc/hr, infusing well at R EJ. Pt able to sit out on the chair, with gait belt and walker. With SL at L AC. No complains of pain made during assessment. To continue monitoring patient.
--- NOTE | 2020-07-23 11:11 | P ---
[facility] [place] [address] PROCEDURE REPORT Name: ISH FRANKEL Room #: 455-P ADM IN M.R.#: [id number] Admission: 07/22/20 Attend Phys: Jayden Figueroa MD Discharge: Date of : 34 Report #: [id number] THIS REPORT FOR: cc: Pedro Grove MD, Steven A. MD McElhinney, Christian C. MD ~ DOC #: [id number] cc: ANGELINA Torres MD DATE OF SERVICE: 07/22/2020 PROCEDURE PERFORMED: Flexible sigmoidoscopy with decompression. HISTORY OF PRESENT ILLNESS: The patient is an 84-year-old male with recent abdominal pain, near syncopal episode. He is a poor historian, who was having increasing abdominal pain and distention. A CT scan of the abdomen and pelvis was performed early this morning on admission showing changes consistent with a possible sigmoid volvulus with a large amount of gas in the volvulus segment, small amount of gas and stool present in the rectum. He has got an unchanged pancreatic atrophy with small mass in the distal tail of the pancreas, unchanged from prior MRI study. Plan is for flexible sigmoidoscopy with decompression. DESCRIPTION OF PROCEDURE: The risks and benefits of the procedure were explained to the patient's DPOA, those risks including but not limited to bleeding, perforation and the risk of sedation. He understood these risks and gave informed consent. Sedation was given using propofol per anesthesia. Next, a digital rectal exam was initially performed, which was normal. Next, using a pediatric Olympus colonoscope, the scope was placed in the patient's anus and advanced under direct vision into the distal sigmoid colon, at which point a twist was noted consistent with a sigmoid volvulus. I was able to advance the scope through this area without difficulty, proximal to the volvulus of the colon was fairly significantly dilated. There was not a large amount of stool in this area. I performed decompression of the sigmoid colon. I was unable to advance the scope into likely the distal ascending colon, at which point a moderate amount of solid stool was encountered. I was not able to advance the scope any further. I then slowly withdrew the scope to transverse, descending colon and sigmoid colon, mucosa were normal. No polyps or masses were seen. I decompressed the entire area well. The rectal mucosa in the areas that were visualized were normal as well. At this point, the scope was then withdrawn and the procedure terminated. The patient tolerated the procedure well. IMPRESSION: Changes consistent with sigmoid colon volvulus, status post decompression. RECOMMENDATIONS: Dr. Stanford, from Surgery has been consulted, would consider the [address] [address] PROCEDURE REPORT Name: ISH FRANKEL Room #: 455-P [facility] IN M.R.#: [id number] Admission: 07/22/20 Attend Phys: Jayden Figueroa MD Discharge: Date of : 34 Report #: [id number] possibility of surgical correction as this can be recurrent in the future. Thank you for allowing me to participate in his care. Joseph Garcia MD CCM/KRYSTAL/LORI <ELECTRONICALLY SIGNED> By: Joseph Garcia MD 07/23/20 1111 1100 2329 Joseph Garcia MD /nt
[2020-07-23 15:16] VITALS: BP 150/80
[2020-07-23 20:09] VITALS: BP 173/90
--- NOTE | 2020-07-24 04:36 | NUR ---
PATIENT AOX1 CONFUSED AND FORGETFUL. PATIENT AMBULATES TO THE BATHROOM WITH STEADY GAITS. PATIENT ON CLEAR LIQUID BUT WAS DEMANDING FOR COFFEE, PATIENT EDUCATED ON WHAT HE IS SUPPOSED TO DRINK. NO SYNCOPE THIS SHIFT. FALL PECAUTION IN PLACE. PATIENT IN BED ASLEEP AT THIS TIME BREATHING REGULAR AND UNLABOURED.
[2020-07-24 05:28] LABS: HEMATOCRIT 33.5 % (42.0-52.0); HEMOGLOBIN 10.8 gm/dL (14.0-18.0); MCH 30.7 pg (26.0-34.0); MCHC 32.1 g/dL (28.0-37.0); MCV 95.5 fL (80.0-100.0); RBC 3.51 mil/uL (4.50-6.00); RDW 13.4 % (10.5-14.5); WBC 6.1 thou/uL (4.0-11.0)
[2020-07-24 05:46] LABS: ALBUMIN 2.8 g/dL (3.4-5.0); CALCIUM 8.6 mg/dL (8.5-10.1); PHOSPHORUS 2.5 mg/dL (2.5-4.9); POTASSIUM 3.9 mmol/L (3.5-5.1)
[2020-07-24 05:52] LABS: CREATININE 1.4 mg/dL (0.7-1.3)
[2020-07-24 08:51] VITALS: BP 119/76
--- NOTE | 2020-07-24 18:14 | NUR ---
ASSUMED PATIENT CARE AT 1030. A/0 X3. DENIES PAIN, NO N/V. AMBULATED IN ROOM AND HALLWAY GAIT STEADY. PATIENT HAD BM TODAY. PROGRESSING TOWARDS POC GOALS.
[2020-07-24 19:41] VITALS: BP 150/82
--- NOTE | 2020-07-25 02:50 | NUR ---
ASSUMED CARE OF PT AT SHIFT CHANGE. PT IS AOX3 AND CALLS APPROPRIATELY AT TIMES. FALL PRECAUTION IN PLACE. PT DENIED PAIN, NAUSEA OR SOA. ASSESSMENT CHARTED. NO SYNCOPAL EPISODE NOTED. PT RAN SR/SA ON TELE. PT WAS ABLE TO GET COMFORTABLE AND SLEEP PART OF THE SHIFT. VSS AND NO S/S OF ACUTE DISTRESS. WILL CONTINUE TO MONITOR.
[2020-07-25 05:36] LABS: HEMATOCRIT 28.1 % (42.0-52.0); HEMOGLOBIN 9.2 gm/dL (14.0-18.0); MCH 31.1 pg (26.0-34.0); MCHC 32.8 g/dL (28.0-37.0); RBC 2.96 mil/uL (4.50-6.00); RDW 13.2 % (10.5-14.5); WBC 5.7 thou/uL (4.0-11.0)
[2020-07-25 05:59] LABS: ALBUMIN 2.5 g/dL (3.4-5.0); CALCIUM 8.1 mg/dL (8.5-10.1); CREATININE 1.4 mg/dL (0.7-1.3); PHOSPHORUS 2.5 mg/dL (2.6-4.7); POTASSIUM 3.7 mmol/L (3.5-5.1)
[2020-07-25 07:30] VITALS: BP 156/87
--- NOTE | 2020-07-25 10:16 | NUR ---
ASSUMED CARE OF PT AT 0700 THIS MORNING. PT WAS ADMITTED FOR DEHYDRATION AND NEAR SYNCAPAL EPISODE. PT IS A/OX3 WITH SOME FORGETFULNESS. LUNGS ARE CLEAR ALL, SKIN INTACT W/D/ATR. ASSESSMENTS CHARTED OTHERWISE UNRTEMARKABLE, CALL LIGHT AND OTHER NEEDS ARE PLACE WITHIN REACH. IV IN RIGHT EJ. MEDS AND TX GIVEN NEEDED AND SCHEDULED.
[2020-07-25 11:28] VITALS: BP 156/87
[2020-07-25 14:19] VITALS: BP 156/87
--- NOTE | 2020-07-25 14:30 | NUR ---
CARE TEAM INDICATED THAT PT IS MEDICALLY STABLE TO DC HOME THIS DAY. CM CALLED AND SPOKE WITH PT'S HC DPADIEL GUPTA AND HIS NIECE CHASTITY. THEY ARE AWARE AND AGREABLE WITH DC HOME THIS DAY. CM SENT REFERRAL TO [facility] PER THEIR REQUEST. A IS ABLE TO ACCEPT. CM TO FAX ORDERES. PT'S NIECE TO PROVIDE TRANSPORT HOME THIS EVENING BETWEEN [phone]. PT HAS A NEEDED DME. NO OTHER CM INTERVENTION INDICATED AT THIS TIME. CASE CLOSED.
[2020-07-25 15:40] VITALS: BP 127/76
[2020-07-25 19:44] VITALS: BP 156/87
--- NOTE | 2020-07-25 19:45 | NUR ---
Assumed pt care at 1900. A/OX3,able to make needs known. VSS. Pt discharged home with HH/grandson via WC accompanied by staff at 1935. Bag of medications sent with pt.
== END 2020-07-25 19:35 | disposition home health service (06) | DRG 344 ==
LOC: ER 01:08 → 4W 04:20 → EROBS 04:20 → 4W 06:11
PROVIDERS: Emergency Medicine; Hospitalist; ADMIT Internal Medicine; ATTEND Internal Medicine
PROC: 0D9N8ZZ Drainage of Sigmoid Colon, Via Natural or Artificial Opening Endoscopic (ICD-10-PCS; principal; 2020-07-22)
DX: K56.2 Volvulus (principal); J18.9 Pneumonia, unspecified organism; N17.9 Acute kidney failure, unspecified; E87.2 Acidosis; K86.9 Disease of pancreas, unspecified; G20 Parkinson's disease; F02.80 Dementia in other diseases classified elsewhere, unspecified severity, without behavioral disturbance, psychotic disturbance, mood disturbance, and anxiety; I16.0 Hypertensive urgency; E78.5 Hyperlipidemia, unspecified; D63.1 Anemia in chronic kidney disease; E86.0 Dehydration; I12.9 Hypertensive chronic kidney disease with stage 1 through stage 4 chronic kidney disease, or unspecified chronic kidney disease; N18.9 Chronic kidney disease, unspecified; E83.42 Hypomagnesemia; E87.6 Hypokalemia; Z20.822 Contact with and (suspected) exposure to COVID-19; Z79.899 Other long term (current) drug therapy
CPT/HCPCS: 10045; 62110; 62900; 70005

== ENCOUNTER 2020-08-29 07:57 | Inpatient (IN) | payer OTHER ==
[2020-08-29] VITALS (7 sets, daily range): BP systolic 148–195; BP diastolic 81–104
[~2020-08-29] VITALS: Ht 170.2 cm; Wt 61.2 kg
[~2020-08-29 07:57] MED LIST changes: +ASA81BEC PO; +CLARITIN10 M3 PO; +OMEPRAZOLE20 M2 PO
[2020-08-29 08:20] LABS: URINE BILIRUBIN NEGATIVE (Negative); URINE BLOOD NEGATIVE (Negative); URINE CLARITY CLEAR; URINE COLOR YELLOW; URINE GLUCOSE-RANDOM* NEGATIVE (Negative); URINE KETONES NEGATIVE (Negative); URINE LEUKOCYTES-REFLEX NEGATIVE (Negative); URINE NITRITE-REFLEX NEGATIVE (Negative); URINE PROTEIN (DIPSTICK) TRACE (Negative); URINE UROBILINOGEN 0.2 E.U./dl (0.2-1.0)
--- NOTE | 2020-08-29 09:10 | EKG ---
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 Table Attendant: KF : 1934-08-24 Requested By: Darryl Robert Order Number: [id number] MD: Antelmo Lee Measurements Intervals [place] Rate: 77 P: MT: QRS: 10 QRSD: 106 T: 12 QT: 478 QTc: 542 Interpretive Statements NSR, artifact Left ventricular hypertrophy Nonspecific T abnormalities, lateral leads Prolonged QT interval Baseline wander in lead(s) V6 No previous ECG available for comparison Electronically Signed On 08-29-2020 9:09:53 CDT by Antelmo Lee [email or web address] <ELECTRONICALLY SIGNED> By: Antelmo Lee MD, [facility] 08/29/20 0909 0834 3 Antelmo Lee MD, FACC /EPI
[2020-08-29 09:48] LABS: ABSOLUTE NEUTROPHILS 4.9 thou/uL (1.4-8.2); BASOPHILS 0.6 % (0.0-2.0); HEMATOCRIT 30.2 % (42.0-52.0); MCH 30.9 pg (26.0-34.0); MCHC 33.1 g/dL (28.0-37.0); MCV 93.5 fL (80.0-100.0); MONOCYTES 9.1 % (1.0-8.0); PLATELET COUNT 223 thou/uL (150-400); POLYS 73.3 % (36.0-66.0); RBC 3.24 mil/uL (4.50-6.00); RDW 13.7 % (10.5-14.5); WBC 6.7 thou/uL (4.0-11.0)
[2020-08-29 09:55] LABS: CREATININE 1.9 mg/dL (0.7-1.3); POTASSIUM 3.2 mmol/L (3.5-5.1)
[2020-08-29 10:01] LABS: ALBUMIN 3.2 g/dL (3.4-5.0); TOTAL BILIRUBIN 0.5 mg/dL (0.2-1.0); TOTAL PROTEIN 7.8 g/dL (6.4-8.2)
[2020-08-29] MEDS ORDERED: ATORVASTATIN CA10 MG PO (13:37)
[2020-08-29] MEDS ORDERED: CARBIDOPA-LEVO1 EAC9 PO (13:38)
[2020-08-29] MEDS ORDERED: LOSARTAN POTASS50 MG PO (13:39)
[2020-08-29] MEDS ORDERED: OMEPRAZOLE 20 M20 M1 PO (13:39)
--- NOTE | 2020-08-29 16:06 | NUR ---
ASSUMED PT CARE UPON ADMISSION TO UNIT AROUND 1215. PATIENT IS A&OX3 AND ABLE TO MAKE NEEDS KNOWN. UPON ADMISSION TO UNIT, NG TUBE WAS PROTRUDING THROUGH PATIENTS MOUTH. NG TUBE REMOVED AND NEW ONE PLACED. XRAY SHOWED TUBE WAS COILED, WHILE PLATFORM BUILDER WAS STILL IN ROOM, TUBE WAS PLACED AGAIN AND PLATFORM BUILDER INFORMED THIS RN AND ROLL HAND THAT THE NG TUBE WAS IN PLACE AND NOT COILED ANY LONGER. PATIENT WENT TO SURGERY SOON AFTER NG TUBE CONFIRMATION WAS COMPLETE. PATIENT TO BE ON LOW INTERMITTENT SUCTION. FAMILY AT BEDSIDE. ADMISSION CMOPLETED PRIOR TO PATIENT LEAVING FLOOR FOR SURGERY. FALL PRECAUTIONS ARE IN PLACE.
[2020-08-30] VITALS (8 sets, daily range): BP systolic 118–162; BP diastolic 70–81
--- NOTE | 2020-08-30 06:06 | NUR ---
patient aox2/3, patient confused and forgetful. patient denied pain or discomfort.patient has been npo since midnight. fall precaution in place. patient in bed asleep at this time breathing regular and unlaboured.
[2020-08-30 06:37] LABS: HEMATOCRIT 28.7 % (42.0-52.0); HEMOGLOBIN 9.2 gm/dL (14.0-18.0); MCH 31.3 pg (26.0-34.0); MCHC 32.1 g/dL (28.0-37.0); MCV 97.6 fL (80.0-100.0); RBC 2.94 mil/uL (4.50-6.00); RDW 14.1 % (10.5-14.5); WBC 8.4 thou/uL (4.0-11.0)
[2020-08-30 06:53] LABS: CALCIUM 8.3 mg/dL (8.5-10.1); CREATININE 1.5 mg/dL (0.7-1.3); MAGNESIUM 1.4 mg/dL (1.8-2.4); POTASSIUM 3.1 mmol/L (3.5-5.1)
--- NOTE | 2020-08-30 14:09 | NUR ---
ASSUMED PT ARE THIS AM. PT A&OX3, DOES NOT MAKE ALL NEEDS KNOWN BUT IS CLOSE TO THE NURSES STATION FOR FREQUENT MONITORING. PATIENT HAD SURGERY THIS DAY FOR A SIGMOIDECTOMY AND A COLOSTOMY. PATIENT RETURNED FROM SURGERY AND REMOVED COLOSTOMY BAG, NEW BAG PLACED DRAINING LIGHT BROWN STOOL. PATIENT IV PATENT TO RIGHT UPPER ARM, FLUIDS INFUISING. PATIENT DENIES NAUSEA, NUMBNESS, OR TINGLING. FALL PRECAUTIONS ARE IN PLACE, CALL LIGHT WITHIN REACH. PATIENT HAS A CONWAY CATHETER. ON ROOM AIR.
--- NOTE | 2020-08-30 15:49 | NUR ---
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 CM REVIEWED CHART AND SPOKE WITH CARE TEAM. HAD FLEX SIG YESTERDAY. PT WENT FOR SIGMOIDECTOMY AND COLOSTOMY PLACEMENT THIS DAY. PT RESIDES IN A HOUSE WITH HIS SISTER IN LAW AND BROTHER IN LAW. PT HAS A FWW AND A CANE TO ASSIST WITH MOBILITY. PT HAD DISCHARGE HOME REC[facility]. PT'S DPOA IS CANDY SHAVER , PT RESIDES WITH [facility] . PT HAS NIECE CHASTITY PRATT WHO LIVES LOCALLY AND IS INVOLVED IN PT'S CARE WELL. PT HAD BEEN ON SERVICE WITH [facility] BUT WAS DISCHARGE A FEW DAYS AGO. FAMILY INDICATED THAT PLAN IS FOR PT TO RETURN HOME ONCE MEDICALLY STABLE. THE ARE RECEPTIVE TO HH SERVICES WITH [facility] AGAIN ONCE MEDICALLY STABLE. FAMILY WOULD LIKE [facility] TO SEE IF PT MIGHT QUALIFY FOR [facility] MEDICAID FOR POSSIBLE HCBS. CM EMAILED [facility] TO ASSESS. CM FOLLOWING REGARDING DC PLANNING.
[2020-08-31 01:36] VITALS: BP 158/85
--- NOTE | 2020-08-31 04:44 | NUR ---
ASSUMED PT AT 1925. PT IS ALERT AND ORIENTED TO SELF. PT HAS SIXTEEN ANDRE WHICH ARE STILL DRY INTACT WITH A GAUZE AND A TRANSPARENT DRSG. THERE WAS NO SIGN OF REDNESS OR SWELLING AROUND THE SITE. PT'S COLOSTOMY BAG CHANGED DUE TO LEAKAGE; STOMA IS BRIGHT RED AND PROTRUDING. PT NOT ABLE TO VERBALIZE NEEDS AND CAN BE INCOHERENT WHEN TALKING. FALL PRECAUTIONS IN PLACE WITH CALL LIGHT WITHIN REACH WILL CONTINUE TO MONITOR.
[2020-08-31 07:15] VITALS: BP 145/85
[2020-08-31 08:09] LABS: MAGNESIUM 1.4 mg/dL (1.8-2.4); POTASSIUM 3.3 mmol/L (3.5-5.1)
--- NOTE | 2020-08-31 13:14 | P ---
[facility] [place] [address] PROCEDURE REPORT Name: ISH FRANKEL Room #: 452-P ADM IN M.R.#: [id number] Admission: 08/29/20 Attend Phys: Ismael Velasquez MD Discharge: Date of : 34 Report #: [id number] THIS REPORT FOR: cc: Pedro Grove MD, Steven A. MD McElhinney, Christian C. MD ~ cc: Dr. Herrera DATE OF SERVICE: 08/29/2020 PROCEDURE PERFORMED: Flexible sigmoidoscopy with decompression of sigmoid volvulus. HISTORY OF PRESENT ILLNESS: The patient is an 85-year-old male who was admitted with increasing abdominal distention and pain. CT scan of the abdomen and pelvis showing sigmoid volvulus with significant dilation of the sigmoid colon. No evidence of perforation. He underwent a similar appearance last month and was decompressed by myself on 07/22/2020. We discussed the possibility of surgery. Family, because of his history of dementia and other medical problems, decided not to pursue any further intervention at that time. 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 Plan is for decompression. DESCRIPTION OF PROCEDURE: The risks and benefits of the procedure were explained to the patient's family, those risks including but not limited to bleeding, perforation and the risk of sedation. They understood these risks and gave informed consent. Sedation was given using propofol per anesthesia. Next, a digital rectal exam was initially performed, which was normal. Next, using a standard Olympus colonoscope, the scope was placed in the patient's anus and advanced under direct vision into the distal sigmoid colon, at which point there was once again changes of a sigmoid volvulus seen. I was able to advance the scope through the narrowing without difficulty. Once through the narrowing there was significant dilation of the sigmoid colon. I was able to advance the scope into the transverse colon, which showed moderate amount of stool in the dilated portion of the sigmoid colon. Moderate amount of liquid stool was noted. This was all aspirated away. The area was decompressed completely and the scope was then slowly withdrawn. No abnormalities were noted in the rectum. The scope was then withdrawn and the procedure terminated. The patient tolerated the procedure well. 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 RECOMMENDATIONS: 1. Observe the patient post-procedure. 2. Agree with surgery consultation, which has been done. It appears the [address] [address] PROCEDURE REPORT Name: ISH FRANKEL Room #: 452-P [facility] IN M.R.#: [id number] Admission: 08/29/20 Attend Phys: Ismael Velasquez MD Discharge: Date of : 34 Report #: [id number] is willing to consider proceeding with surgery in the near future. Thank you for allowing me to participate in his care. <ELECTRONICALLY SIGNED> By: Joseph Garcia MD 08/31/20 1314 1539 0108 Joseph Garcia MD /nt
--- NOTE | 2020-08-31 13:57 | NUR ---
CM FAXED REFERRAL TO [facility] PER PT AND FAMILY REQUEST FOR POSSIBLE SERVICES UPON ANTICIAPTED DC HOME ONCE MEDICALLY STABLE. CM EMAILED [facility] AND INDICATED THAT PT AND FAMILY WERE INTERESTED IN SEEING IFPT QUALIFIES FOR [facility] MEDICAID. CM FOLLOWING REGARDING DC PLANNING.
[2020-08-31 15:50] VITALS: BP 150/77
--- NOTE | 2020-08-31 19:05 | NUR ---
Assumed pt care this am, vs stable. Colostomy in place draining brown stool, mid line incision with mita c/d/i. Started on clears, diet and medicatiosn are tolerated well. POC followed. endorsed to the night nurse.
[2020-08-31 19:53] VITALS: BP 151/91
--- NOTE | 2020-09-01 02:28 | NUR ---
ASSUMED PT CARE AT 1905. PT WAS SITTING IN RECLINER AND WAS TRANSFERRED TO BED WITH MOD. ASSIST WITH GB AND WALKER. PT IS ALERT AND ORIENTED TO SELF. PT HAS A CONWAY AND A COLOSTOMY TO THE LUQ. ADAPTER RING REPLACED DUE TO LEAKAGE AND ANDRE ARE STILL INTACT AND DRESSED WITH TAGADERM. PT DID NOT VOICE ANY CONCERNS AND NO VISIBLE SGN OF DISTRESS WAS NOTED. FALL PREACAUTIONS IN PPLACE. WILL CONTINUE TO MONITOR,
[2020-09-01 08:19] VITALS: BP 150/92
--- NOTE | 2020-09-01 10:26 | NUR ---
OSTOMY CARE; AWAKE, COOPERATIVE, BROTHER IN LAW AT BS, RECEPTIVE TO EDUCATION,STATES PLAN FOR PT TO GO HOME AND FAMILY WILLING TO ASSIST W/ CARE, POUCH LEAKING, LARGE AMT LIQ BILISH STOOL PRESENT, PERISTOMAL SKIN INTACT, MIDLINE INCISION INTACT WELL APPROXIMATED W/ ANDRE. COVERED W/ TELFA AND TRANSPARENT DRSG, NEW POUCH CISCO HIGH OUTPUT APPLIED AND CONNECTED TO DEP DRAINAGE, TEACHING INFO AND SUPPLIES AT BS, WILL CONT TO FOLLOW RECOMMENDATIONS; CHANGE POUCH Q 3-5 DAYS AND PRN, EMTPY PRN SYNTHETIC PLASTERER AWARE
--- NOTE | 2020-09-01 10:31 | NUR ---
ADDENDUM OSTOMY CARE; STOMA BEEFY RED, BUDDED
[2020-09-01 13:44] VITALS: BP 150/92
--- NOTE | 2020-09-01 15:13 | NUR ---
SOFÍA NURSE CONSULTED TODAY. PT HAD SOME LEAKING OVER NIGHT. SULY DID SOME TEACHING WITH PT'S BRO IN LAW JOSE ROBERTO AT [facility] THIS DAY. PT IS ON CLEAR LIQUID DIET AT THIS TIME. PLAN TO ADVANCE DIET TOLERATED. [facility] IS ABLE TO ACCEPT PT UPON DC. CM FOLLOWING REGARDING DC PLANNING.
[2020-09-01 18:10] LABS: MAGNESIUM 1.6 mg/dL (1.8-2.4); POTASSIUM 3.3 mmol/L (3.5-5.1)
--- NOTE | 2020-09-01 19:20 | NUR ---
Assumed pt care vs stable. Colostomy care done by ostomy nurse, draining dark green fluid. Mid line incision with stapples c/d/i, poc followed , pain is managed with medications partial relief is noted. Pt is alert to self, confused but redirectable. Endorsed to the night nurse.
[2020-09-01 21:30] VITALS: BP 166/84
[2020-09-02 00:26] VITALS: BP 153/72
--- NOTE | 2020-09-02 02:46 | NUR ---
ASSUMED PT CARE AT 1905. PT IS ALERT AND ORIENTED TO SELF. PT HAS A CONWAY AND COLOSTOMY. COLOSTOMY IS DRY AND INTACT. PT'S SISTER CLAIMS PT IS ALERT AND ORIENTED X4 AT HOME AND INDEPENDENT BUT ONLY NEEDS ASSISTANCE WITH SHOWER. PER SISTER" PT MUMBLES IN THE EARLY HOURS OF THE MORNING". PT WAS ABLE TO RECOGNIZE SISTER AND RESPONDED APPROPRIATELY TO HER. PT TRIED TO GET OUT OF BED. FALL PRECAUTIONS IN PLACE WITH CALL LIGHT WITHIN REACH. WILL CONTINUE TO MONITOR.
[2020-09-02 07:27] VITALS: BP 160/88
--- NOTE | 2020-09-02 09:53 | NUR ---
WOUND CONSULT; I WAS CONSULTED TO ASSESS THE OSTOMY SITE. THE OSOMY SITE IS WNL AND IS NOT LEAKING. THE ARCH CUSHION PRESS OPERATOR WILL SEE THIS PATIENT TOMORROW FOR FURTHER EDUCATION. I ANSWERED THE QUESTIONS THE PATIENT/FAMILY HAD. RECOMMENDATIONS; D/C CONSULT.
--- NOTE | 2020-09-02 10:12 | PATH ---
[facility] [address] [place] [address] PATHOLOGY RPT PROCEDURE Name: JOSTINISH Miguel Room #: 452-P ADM IN M.R.#: [id number] Admission: 08/29/20 Date of : 34 Discharge: Report #: [id number] Path Case #: [id number] [facility] Accession Number: [id number] . 01 Material submitted: . sigmoid colon - SIGMOID COLON . 01 Clinical history: . SIGMOID RESECTION COLOSTOMY SIGMOID VOLVULUS . 02 Diagnosis: Large intestine, sigmoid colon, resection: - Attenuated and markedly congested mucosa, history of sigmoid volvulus. - Negative for dysplasia or malignancy. - Margins of resection viable and unremarkable. - Two reactive lymph nodes. (IUV:pit; 08/31/2020) QTP 09/01/2020 1102 Local . 02 Electronically signed: . Tanvi Mendoza MD, Pathologist NPI- [id number] . 01 Gross description: . The specimen is received in formalin, labeled "Ish Frankel sigmoid colon". Received is an unoriented segment of colon measuring 39.8 cm in length and ranges in diameter from 3.2 to 5.4 cm. Both margins are stapled. The serosal surface is pink-robison to pink-robison and glistening in appearance. The attached pericolic fat measures up to 2.0 cm in thickness. The specimen is opened along the antimesenteric line to reveal pink-silva to pink-robison, edematous mucosa with minimal architectural folds. No distinct nodules or lesions are noted grossly. Sectioning through the attached pericolic fat reveals two readily identifiable lymph nodes measuring 0.3 and 0.5 cm in maximum dimensions. The specimen is submitted representatively as follows: . A1-A2 both margins A3-A4 customer relations representative sections of colonic mucosa A5 intact lymph nodes. (CAA; 08/30/2020) . After initial examination, the specimen is reexamined. Diverticula are not grossly identified. Additional customer relations representative sections of flattened mucosa are submitted in cassettes A6 and A7. (CAA; 08/31/2020) [place] [address] PATHOLOGY RPT PROCEDURE Name: ISH FRANKEL Room #: 452-P [facility] IN M.R.#: [id number] Admission: 08/29/20 Date of : 34 Discharge: Report #: [id number] Path Case #: [id number] QAC/QAC 08/31/2020 1500 Local . 02 Pathologist provided ICD-10: K56.2 . 02 CPT . 982906 Specimen Comment: A courtesy copy of this report has been sent to [phone] Specimen Comment: [phone], Specimen Comment: Report sent to , DR CONTRERAS / DR CHESTER Specimen Comment: A duplicate report has been generated due to demographic updates. Performed at: [address], [place] [id number] MD Steve De La Rosa MD Phone: [phone] Performed at: [address] [id number] MD Tanvi Mendoza MD Phone: [phone]
[2020-09-02] MEDS ORDERED: K-DUR 20 MEQ T20 MEQ PO (15:07)
[2020-09-02] MEDS ORDERED: ULTRAM50 MG PO (15:07)
[2020-09-02] MEDS ORDERED: MAG-OXIDE400 MG PO (15:07)
[2020-09-02 15:10] VITALS: BP 155/78
--- NOTE | 2020-09-02 16:40 | NUR ---
CARE TEAM INDICATED THAT PT IS MEDICALLY STABLE TO DC HOME THIS DAY. CM [facility] . CM CALLED AND NOTIFIED THEM OF DC HOME THIS DAY. NURSE WENT OVER DC WITH PT'S MICHELLE GUPTA. PT'S BRO IN LAW IS TO PROVIDE TRANSPORT HOME THIS DAY. [facility] FILED [place] MEDICA[place] APPLICATION. NO OTHER CM INTERVENTION INDICATED. CASE CLOSED.
[2020-09-02 19:17] VITALS: BP 143/87
--- NOTE | 2020-09-03 05:47 | NUR ---
PT WAS OBSERVED LYING ON HIS BED WITH HIS EYES CLOSED AT SHIFT CHANGE.PT VERY IMPULSIVE,TRIES TO GET OUT OF BED WITHOUT ASSIST.CONSTANT EDUCATION GIVEN.URINAL AT BEDSIDE .COLOSTOMY TO HIS L SIDE,LIQUID BROWN STOOL NOTED. DRAINAGE TO DD.FALL AND HOURLY ROUNDING MAINTAINED.CALL LIGHT WITHIN REACH.
[2020-09-03 07:25] VITALS: BP 150/79
--- NOTE | 2020-09-03 11:10 | NUR ---
Pt is sleeping. Very lethargic today. Small amount of liquid yellow brownish fluid in armstrong bag. Bed in low position and fall precautions in place. Lungs clear. Waiting for discharge order. Not discharged yesterday due to educating family on colostomy care. Family has not been in today either.
--- NOTE | 2020-09-03 17:04 | O ---
[facility] [place] [address] OPERATIVE REPORT Name: ISH FRANKEL Room #: 435-P [facility] IN M.R.#: [id number] Admission: 08/29/20 Attend Phys: Ismael Velasquez MD Discharge: 09/03/20 Date of : 34 Report #: [id number] THIS REPORT FOR: cc: Pedro Grove MD, Steven A. MD Patterson,Ovidio Huang MD ~ DATE OF SERVICE: 08/30/2020 PREOPERATIVE DIAGNOSIS: Sigmoid volvulus. POSTOPERATIVE DIAGNOSIS: Sigmoid volvulus. OPERATION: Sigmoidectomy with colostomy. SURGEON: Ovidio Herrera MD ANESTHESIA: General. ESTIMATED BLOOD LOSS: Minimal. SPECIMENS: Sigmoid colon. DESCRIPTION OF PROCEDURE: After informed consent was obtained, the patient was brought to the operating room and placed supine. SCDs were placed and working, preoperative antibiotics were administered, general anesthesia was induced. The abdomen was prepped and draped in the usual sterile fashion. A midline incision was made from the umbilicus down to the pubis. Fascia was incised. A self-retaining retractor was placed. Examination was undertaken. The small bowel appeared normal. I then identified the sigmoid colon. It was redundant. I made a window in the mesocolon, at about the level of the rectosigmoid. I then stapled the rectosigmoid using a JAZMIN blue load stapler. The mesocolon was then ligated using the EnSeal device proximally. The mesocolon was ligated to the level of the distal descending colon. The colon was then stapled off proximally at that site using a JAZMIN blue load stapler. Specimen was removed. There was good hemostasis. A 2 cm hole was made in the skin in the left lower quadrant. Cautery dissection was made down to the fascia was incised in cruciate fashion. Colon was then brought out through that incision. Closure was then undertaken by closing the peritoneum with a running Vicryl suture. Fascia was then closed with a 0 PDS in running fashion. Skin was closed with mita. Colostomy was then fashioned using the 4-0 Vicryl in a Claudette ostomy fashion. Ostomy appliance was placed. [address] [address] OPERATIVE REPORT Name: JOSTINISH Rivera Room #: 435-P DIS IN .R.#: [id number] Admission: 08/29/20 Attend Phys: Ismael Velasquez MD Discharge: 09/03/20 Date of : 34 Report #: [id number] COMPLICATIONS: None. DISPOSITION: The patient was taken to recovery in satisfactory condition. <ELECTRONICALLY SIGNED> By: Ovidio Herrera MD 09/03/20 1704 0809 0823 Ovidio Herrera MD /nt
== END 2020-09-03 14:53 | disposition home or self-care (01) | DRG 329 ==
LOC: ER 07:57 → EDBD 07:57 → EROBS 09:39 → 4W 09:39 → 4S 09-02 18:28
PROVIDERS: Emergency Medicine; ADMIT Internal Medicine; ATTEND Internal Medicine
DX: K56.2 Volvulus (principal); E43 Unspecified severe protein-calorie malnutrition; I10 Essential (primary) hypertension; K86.9 Disease of pancreas, unspecified; G20 Parkinson's disease; F02.80 Dementia in other diseases classified elsewhere, unspecified severity, without behavioral disturbance, psychotic disturbance, mood disturbance, and anxiety; E78.5 Hyperlipidemia, unspecified; D63.8 Anemia in other chronic diseases classified elsewhere; R13.10 Dysphagia, unspecified; Z66 Do not resuscitate; Z20.822 Contact with and (suspected) exposure to COVID-19
CPT/HCPCS: 10040; 10195; 50010; 50093; 50101; 50386; 50455; 51412; 51708; 51712; 56525; 56526; 56528; 57092; 62110; 62900; 70005

== ENCOUNTER 2020-09-04 00:32 | Inpatient (IN) | payer OTHER ==
[2020-09-04] VITALS (7 sets, daily range): BP systolic 144–177; BP diastolic 41–85
[~2020-09-04] VITALS: Ht 152.4 cm; Wt 64.0 kg
--- NOTE | ~2020-09-04 | EMS ---
[address] [address] EMS Patient Care Report Name: ISH FRANKEL Room #: 459-P ADM IN M.R.#: [id number] Admission: 09/04/20 Attend Phys: Curt Barrera MD Discharge: Date of : 34 Report #: [id number] THIS REPORT FOR: //name// Report Transmitted: 09/05/2020 13:50 EMS Care Summary [place], [place]/[facility] Incident [id number] @ 09/03/2020 23:54 Incident Location [address] [place], [place] [id number] Patient ISH FRANKEL Male, 85 Years 1935 Patient Address [address] [place] [address] Patient History Parkinson's Disease, Patient Medications Loratadine, Omeprazole, Atorvastatin, Chief Complaint ABD SURGERY COMPLICATIONS Disposition Transported No Lights/[place] Dispatch Reason Sick Person Transported To [facility] Narrative M41 DISPATCHED TO A SICK PERSON WITH P30. M41 AOS AND FOUND A MALE PT LYING IN BED WITH FAMILY IN THE HOUSE. THE FAMILY STATES THAT THE PT WAS SEEN ON SATURDAY AT [facility] AND HAS BEEN THERE UP UNTIL HIS DISCHARGE TODAY FOR A TWISTED BOWEL. AT [facility] THE PT WAS GIVEN A CHOLOSTOMY BAG AND WAS SENT HOME. AFTER BEING AT HOME FAMILY NOTICED THE PT WAS NOT [address] [address] EMS Patient Care Report Name: ISH FRANKEL Room #: 459-P ADM IN M.R.#: [id number] Admission: 09/04/20 Attend Phys: Curt Barrera MD Discharge: Date of : 34 Report #: [id number] ACTING NORMAL AND IS NOT ALERT HE NORMALLY IS. PT IS ALSO VERY WARM TO THE TOUCH. THE PT DOES OPEN HIS EYES WHEN TALKED TO AND CAN ANSWER SOME QUESTIONS BUT IS VERY SLOW TO DO SO AND IS CONFUSED WHEN I ASK QUESTIONS TO DETERMINE IF HE IS ORIENTED. PT STATES HE DOES HAVE ABD PAIN. PT MOVED TO THE COT. VITALS OBTAINED. BGA OBTIANED. IV ACCESS ATTEMPTED AND FAILED. 4 LEAD OBTAINED. PT PLACED ON 3LPM O2 NC. M[address] [facility]. EN ROUTE PT REMAINED STABLE. REPORT GIVEN TO SARBJIT KIM. SIGNATURES OBTAINED. TRANSFER OF CARE TOOK PLACE. M41 IN SERVICE. MARCE WRAY WANT AD SUPERVISOR Initial Vitals @00:27P: 106,CO: 3,SpO2: 95, @00:10P: 106,R: 18,BP: 133/68,Pain: 4/10,GCS: 14,Glucose: 72,SpO2: 90,Revised Trauma: 12, @00:16P: 98,R: 18,BP: 126/66,Pain: 4/10,GCS: 14,CO: 13,SpO2: 94,Revised Trauma: 12, Assessments @00:03MENTAL:Confused,SKIN:Hot,HEENT:Head/Face: No Abnormalities,Neck/Airway: No Abnormalities,LUNG SOUNDS:Left Upper: Other,General: Other,ABDOMEN:Left Upper: Other,General: Other,PELVIS//GI:EXTREMITIES:PULSE:NEURO: Impression Acute abdomen Procedures @00:20ALS AssessmentResponse: UnchangedSucceeded@00:20Saline Lock 0cc (20 ga) Site: Antecubital-LeftResponse: UnchangedFailed@00:203-Lead ECGResponse: UnchangedSucceeded@00:06Oxygen FlowRate: 3 Device: Nasal Cannula (NC) Response: UnchangedSucceeded Timeline 23:51,Call Received 23:51,Dispatch Notified 23:54,Dispatched 23:54,En Route 00:01,On Scene 00:03,At Patient [facility] [address] [place] [address] EMS Patient Care Report Name: JOSTINISH Rivera Room #: 459-P ADM IN .R.#: [id number] Admission: 09/04/20 Attend Phys: Curt Barrera MD Discharge: Date of : 34 Report #: [id number] 00:06,Oxygen FlowRate: 3 Device: Nasal Cannula (NC) Response: UnchangedSucceeded, 00:10,BP: 133/68 M,PULSE: 106,RR: 18 R,SPO2: 90 Ox,ETCO2: ,B,PAIN: 4,GCS: 14, 00:15,Depart Scene 00:16,BP: 126/66 M,PULSE: 98,RR: 18 R,SPO2: 94 Ox,ETCO2: ,BG: ,PAIN: 4,GCS: 14, 00:20,ALS Assessment,Response: UnchangedSucceeded, 00:20,Saline Lock 0cc 20 ga Site: Antecubital-Left,Response: UnchangedFailed, 00:20,3-Lead ECG,Response: UnchangedSucceeded, 00:27,BP: / M,PULSE: 106,RR: R,SPO2: 95 Ox,ETCO2: ,BG: ,PAIN: ,GCS: , 00:27,At Destination 00:37,Call Closed Disclaimer v1.1 Copyright 2020 [employer] This EMS Care Summary contains data elements from the applicable legal record (which may be displayed differently). It is designed to provide pertinent information for the following purposes: continuity of care, clinical quality, and state data reporting. The complete legal record is available to ED staff and administrators of the receiving hospital in [employer] Patient Tracker. All data is provided "as is."
[~2020-09-04 00:32] MED LIST changes: +K-DUR 20 MEQ T20 MEQ PO; +MAG-OXIDE400 MG PO; +ULTRAM50 MG PO
[2020-09-04 01:53] LABS: ABSOLUTE NEUTROPHILS 7.5 thou/uL (1.4-8.2); BASOPHILS 0.2 % (0.0-2.0); EOSINOPHILS 0.1 % (0.0-3.0); HEMOGLOBIN 9.4 gm/dL (14.0-18.0); LYMPHOCYTES 7.8 % (24.0-44.0); MCH 30.8 pg (26.0-34.0); MCHC 32.5 g/dL (28.0-37.0); MCV 94.6 fL (80.0-100.0); MONOCYTES 7.1 % (1.0-8.0); PLATELET COUNT 195 thou/uL (150-400); POLYS 84.8 % (36.0-66.0); RBC 3.06 mil/uL (4.50-6.00); RDW 14.2 % (10.5-14.5); WBC 8.8 thou/uL (4.0-11.0)
[2020-09-04 02:03] LABS: ALBUMIN 2.4 g/dL (3.4-5.0); ANION GAP 10 mmol/L (7-16); BUN 17 mg/dL (7-18); CALCIUM 8.7 mg/dL (8.5-10.1); CHLORIDE 108 mmol/L (98-107); CO2 22 mmol/L (21-32); CREATININE 1.5 mg/dL (0.7-1.3); GLUCOSE 91 mg/dL (74-106); POTASSIUM 4.2 mmol/L (3.5-5.1); SGOT 21 U/L (15-37); SGPT 10 U/L (16-63); SODIUM 140 mmol/L (136-145); TOTAL PROTEIN 6.8 g/dL (6.4-8.2); TROPONIN-I <0.06 ng/mL (<0.06)
[2020-09-04 02:07] LABS: URINE BILIRUBIN NEGATIVE (Negative); URINE BLOOD TRACE (Negative); URINE CLARITY CLEAR; URINE COLOR YELLOW; URINE GLUCOSE-RANDOM* NEGATIVE (Negative); URINE KETONES NEGATIVE (Negative); URINE LEUKOCYTES-REFLEX NEGATIVE (Negative); URINE NITRITE-REFLEX NEGATIVE (Negative); URINE PROTEIN (DIPSTICK) 1+ (Negative); URINE UROBILINOGEN 0.2 E.U./dl (0.2-1.0)
[2020-09-04 02:37] LABS: BACTERIA-REFLEX None Seen /HPF (None Seen); CASTS None Seen /LPF (None Seen); CRYSTALS None Seen /LPF (None Seen); MUCUS None Seen strn/LPF (None Seen); SQUAMOUS None Seen /LPF (0-3); URINE RBC 1-2 Rare /HPF (NONE SEEN); URINE WBC-REFLEX None Seen /HPF (0-5)
--- NOTE | 2020-09-04 10:36 | EKG ---
[place] [address] [facility] [place] [address] ELECTROCARDIOGRAM REPORT Name: ISH FRANKEL Room #: 459-P ADM IN M.R.#: [id number] Admission: 09/04/20 Attend Phys: Curt Barrera MD Discharge: Date of : 34 Report #: [id number] [facility] ED Test Date: 2020-09-04 Test Time: 00:45:34 Pat Name: ISH FRANKEL Department: Room: 459 P Gender: M Pan Puller: am : 1935 Requested By: Curt Barrera Order Number: [id number] MD: Stanislav Ayoub Measurements Intervals [place] Rate: 99 P: 41 MN: 153 QRS: 41 QRSD: 88 T: -88 QT: 420 QTc: 540 Interpretive Statements Sinus rhythm Nonspecific T abnormalities, diffuse leads Prolonged QT interval Compared to ECG 08/29/2020 08:34:1 T-wave abnormality still present Electronically Signed On 09-04-2020 10:36:38 CDT by Stanislav Ayoub [email or web address] <ELECTRONICALLY SIGNED> By: Stanislav Ayoub MD, [facility] 09/04/20 1036 0045 004 Stanislav Ayoub MD, FAC /EPI
--- NOTE | 2020-09-04 10:37 | EKG ---
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 : 1935 Requested By: Korey Gaines Order Number: [id number] MD: Stanislav Ayoub Measurements Intervals [place] Rate: 99 P: 43 ID: 140 QRS: 44 QRSD: 99 T: 256 QT: 436 QTc: 560 Interpretive Statements Sinus tachycardia Atrial premature complex Nonspecific T abnormalities, diffuse leads Prolonged QT interval Compared to ECG 08/29/2020 08:34:14 Atrial premature complex(es) now present Electronically Signed On 09-04-2020 10:37:02 CDT by Stanislav Ayoub [email or web address] <ELECTRONICALLY SIGNED> By: Stanislav Ayoub MD, [facility] 09/04/20 [facility] D: 0745 Stanislav Ayoub MD, FACC /EPI
[2020-09-04 10:41] LABS: BE(vivo) -3.8 mmol/L (-2 to +3); HCO3 19.8 mmol/L (22.0-26.0); PCO2 30.6 mmHg (35.0-45.0); pH 7.429 (7.360-7.450); sO2 95.3 % (92.0-98.0)
--- NOTE | 2020-09-05 02:31 | NUR ---
patient aox3 makes needs known. patient uses a urinal. patient has been npo. no cough/soa/ distress noted. patient needs maximum assistance x1 with transfer, toileting, adl and mobility. ostomy bag changed d/t leaking bowel on the sides. stoma is pink in color and moist.stables on the abd are proximal no s/s of infection noted,. fall precaution in place. patient in bed asleep at this time breathing regular and unlaboured.
[2020-09-05 05:37] LABS: HEMATOCRIT 24.5 % (42.0-52.0); HEMOGLOBIN 8.1 gm/dL (14.0-18.0); MCH 30.9 pg (26.0-34.0); MCV 93.6 fL (80.0-100.0); RBC 2.62 mil/uL (4.50-6.00); RDW 14.4 % (10.5-14.5); WBC 9.7 thou/uL (4.0-11.0)
[2020-09-05 05:59] LABS: CALCIUM 8.2 mg/dL (8.5-10.1); CREATININE 1.3 mg/dL (0.7-1.3)
[2020-09-05 07:36] VITALS: BP 190/98
--- NOTE | 2020-09-05 09:34 | NUR ---
OSTOMY CARE; UP IN CHAIR, AWAKE, ALERT, POUCH EDGES LOOSE, NEW POUCH CISCO HIGH OUTPUT APPLIED W/ ADAPT RING UNDER WAFER, STOMA PINKISH RED, BUDDED, VIABLE, LIQ TO LOOSE STOOL NOTED, MID LINE INCISION INTACT W/ ANDRE, WELL APPROXIMATED, TELFA DRSG APPLIED OVER ANDRE COVERED W/ TRANSPARENT, DRSG, POUCH CONNECTED TO DEP DRAINAGE, SUPPLIES AT BS, WILL CONT TO FOLLOW RECOMMENDATIONS; CHANGE POUCH Q 3-5 DAYS AND PRN, EMTPY PRN FUNNEL SETTER AWARE
--- NOTE | 2020-09-05 16:16 | NUR ---
PT ADMITTED RELATED TO PNEUMONIA, FEVER, SEPSIS, AND HCAP. CM REVIEWED CHART AND SPOKE WITH CARE TEAM. PT HAD DISCHARGED HOME SATURDAY AFTERNOON AFTER EDMAR HAD EDUCATION ON NEW OSTOMY WITH [facility] AND RETURNED AT 2:00 AM ON SATURDAY. PT RESIDES IN A HOUSE WITH HIS SISTER IN LAW AND BROTHER IN LAW. PT HAS A FWW AND A CANE TO ASSIST WITH MOBILITY. PT'S DPOA IS CANDY SHAVER , PT RESIDES WITH EDMAR WANG . PT HAS NIECE CHASTITY PRATT WHO LIVES LOCALLY AND IS INVOLVED IN PT'S CARE WELL. CM CALLED AND SPOKE WITH BOTH CANDY SHAVER DPADIEL AND JESSI HYATT THIS DAY AND THEY INDICATED THAT PLAN IS STILL FOR PT TO RETURN HOME ONCE MEDICALLY STABLE. THEY WANT [facility] AGAIN. [facility] SAW PT LAST ADMISSION AND FILED A MEDICIAD APPLICATION. CM FOLLOWING REGARDING DC PLANNING.
--- NOTE | 2020-09-05 17:04 | NUR ---
PT ALERT AND ORIENTED TIMES FOUR. VSS. IVF INFUSING PER ORDER. COLOSTOMY TO DRAINAGE BAG. PT DENEIS PAIN/SOA. SWALLOW EVAL DONE PT NOW ON PUREED DIET. PT WORKED WELL WITH PT/OT TODAY AND IS UP SITTING IN THE CHAIR. FAMILY HERE TI VISIT THIS AFTERNOON. WILL CONTINUE TO MONITOR.
[2020-09-05 17:16] VITALS: BP 176/91
[2020-09-05 19:44] VITALS: BP 143/80
--- NOTE | 2020-09-06 04:21 | NUR ---
ASSUMED PT CARE AT 1930. PT IS ALERT AND CAN BE DISORIENTED AT TIMES. PT'S DRSG IS C/D/I/. COLOSTOMY BAG IS INTACT. PT MUMBLES A LOT AND MAKES IT HARD TO UNDERSTAND. PT DID NOT C/O PAIN. VS ARE STABLE.NO VISIBLE SIGN OF DISTRESS NOTED. FALL PRECAUTIONS IN PLACE WITH CALL LIGHT WITHIN REACH. WILL CONTINUE TO MONITOR.
[2020-09-06 07:38] LABS: ABSOLUTE NEUTROPHILS 8.1 thou/uL (1.4-8.2); BASOPHILS 0.1 % (0.0-2.0); EOSINOPHILS 1.4 % (0.0-3.0); HEMATOCRIT 22.6 % (42.0-52.0); HEMOGLOBIN 7.3 gm/dL (14.0-18.0); LYMPHOCYTES 7.8 % (24.0-44.0); MCH 30.1 pg (26.0-34.0); MCHC 32.2 g/dL (28.0-37.0); MCV 93.5 fL (80.0-100.0); MONOCYTES 10.1 % (1.0-8.0); PLATELET COUNT 232 thou/uL (150-400); POLYS 80.6 % (36.0-66.0); RBC 2.42 mil/uL (4.50-6.00); RDW 14.4 % (10.5-14.5); WBC 10.1 thou/uL (4.0-11.0)
[2020-09-06 10:01] VITALS: BP 143/80
--- NOTE | 2020-09-06 10:36 | NUR ---
Pt is AxOX1. On Aspiration precautions. Takes meds crushed in applesauce. Running A-Fib. IV running in R wrist NS 80ml/hr and ABX. Has Colostomy putting out a yellow fluid into a armstrong bag. Pt is impulsive and does try to occasionally get OOB. He is unable to use call light. Turned q 2 hours to prevent skin breakdown. Hemaglobin is 7.3. and platlets are 232. Consult referral to Chris Guo. Fall risk precautions in place. Will continue to moniotr throughout this shift.
[2020-09-06 16:47] VITALS: BP 116/84
--- NOTE | 2020-09-06 16:59 | NUR ---
CM FOLLOWED UP WITH PT AND HIS 'S FIRST COUSIN AYESHA ERA AND THEY ARE INDICATING THAT THEY WANT SHORT TERM POST ACUTE CARE STAY AND POSSIBLE LTC IN A FACILITY SETTING. PT WAS MORE ALERT TODAY AND STATED THAT IT WAS OK FOR CM TO SPEAK WITH AYESHA. PT INDICATED HE WAS INTERESTED IN SKILLED REHAB UPON DC. CM CALLED AND SPOKE WITH PT'S DPOA CANDY SHAVER AND INDICATED PT'S EXPRESSED PREFERENCE. CM EMAILED HER AN [employer] SNF LIST TO REVIEW. CM FOLLOWING.
--- NOTE | 2020-09-07 02:55 | NUR ---
ASSUMED PT CARE AT 1905. PT IS ALERT AND ORIENTED TO SELF. PT HAS A DRSG AT THE MIDLINE WHICH D/I. PT HAS A COLOSTOMY BAG CONNECTED TO A DRAINAGE BAG. PT PULLED OUT THE IV ON THIS SHIFT. PT TENDS TO GET UP WHEN FEELING THE URGE TO PEE. PT USES THE URINAL AND IS UP X1. PT CAN RESPOND APPROPRIATELY TO QUESTIONS. FALL PRECAUTIONS IN PLACE WITH CALL LIGHT WITHIN REACH WILL CONTINUE TO MONITOR.
[2020-09-07 10:35] LABS: HEMATOCRIT 22.1 % (42.0-52.0); HEMOGLOBIN 7.1 gm/dL (14.0-18.0); MCH 30.2 pg (26.0-34.0); MCHC 32.3 g/dL (28.0-37.0); MCV 93.7 fL (80.0-100.0); RBC 2.36 mil/uL (4.50-6.00); RDW 14.4 % (10.5-14.5)
[2020-09-07 10:48] LABS: CALCIUM 8.7 mg/dL (8.5-10.1); CREATININE 1.2 mg/dL (0.7-1.3); MAGNESIUM 1.4 mg/dL (1.8-2.4)
[2020-09-07 10:53] LABS: POTASSIUM 2.5 mmol/L (3.5-5.1)
--- NOTE | 2020-09-07 14:39 | NUR ---
PT CONTINUES ON IV VANC AND ZOSYN. CM HEARD DR. KENYON SPEAK WITH PT'S DPOA CANDY SHAVER THIS AM. CM CALLED AND SPOKE WITH HER THIS AFTERNOON. SHE INDICATED SHE HADN'T REVIEWED THE LIST WITH EDMAR OF YET. SHE INDIATED SHE PLAND TO SPEAK WITH HER TODAY AND WOULD LIKELY REACH OUT TO CM IN THE AM. SHE EXPRESSED CONCERN FOR DC TIME FRAME AND THE PT'S PNEUMONIA WASN'T YET RESOLVED. CM REITERATED THAT WE START PLANNING DC UPON ADMISSION AND THAT ADMISSION AND AUTH FOR SHORT TERM SKILLED REHAB TAKES SOME TIME TO OBTAIN. CM FOLLOWING REGARDING HOPEFULL DC TO SNF ONCE MEDICALLY STABLE. PT HAD BEEN ON SERVICE WITH [facility] TAPE STRINGER.
[2020-09-07 15:33] VITALS: BP 116/84
--- NOTE | 2020-09-07 15:43 | NUR ---
Pt is AxOX2. Remains on 2L/NC lungs sounds course with nonproductive cough. On aspiration precautions. Takes meds crushed with applesauce or pudding. Active bowels sounds with new colostomy draining yellowish/brown liquid stool. IV team came up and started IV in left FA which also became infiltrated. Contacted DR. Velasquez about putting in order for a PICC line. Also recontacted IV team. His K was a critical lab value of 3.[address] Velasquez and gave K per protocol. His Vanco trough today was at 16 still High. Fall precautions in place. Bed in low position. Pt incontinent of urine today. Urinal at bedside. Call light is within reach. Will monitor until end of shift.
[2020-09-07 16:42] VITALS: BP 161/89
[2020-09-08 02:37] LABS: ABSOLUTE NEUTROPHILS 8.9 thou/uL (1.4-8.2); BASOPHILS 0.5 % (0.0-2.0); EOSINOPHILS 3.3 % (0.0-3.0); HEMATOCRIT 22.6 % (42.0-52.0); HEMOGLOBIN 7.4 gm/dL (14.0-18.0); LYMPHOCYTES 10.2 % (24.0-44.0); MCH 30.6 pg (26.0-34.0); MCHC 32.7 g/dL (28.0-37.0); MCV 93.7 fL (80.0-100.0); MONOCYTES 9.2 % (1.0-8.0); PLATELET COUNT 241 thou/uL (150-400); POLYS 76.8 % (36.0-66.0); RBC 2.41 mil/uL (4.50-6.00); RDW 14.5 % (10.5-14.5); WBC 11.6 thou/uL (4.0-11.0)
--- NOTE | 2020-09-08 03:50 | NUR ---
PT IS A/O X1 AND IS UP WITH ASSISTANCE. 2 LITERS NC AND IS ON SCHEDULED BRTX. AFLUTTER ON THE MONITOR. COLOSTOMY IN PLACE. USES URINAL WITH ASSISTANCE. MEDICATIONS GIVEN PER APR. PT REFUSED NOC MEDS AND HAS SLEPT MOST OF THE NOC. REMAINS ON NECTAR THICK LIQUIDS FOR RISK OF POSSIBLE ASPIRATION. IV REPLACED. FALL PRECAUTIONS IN PLACE, CALL LIGHT IS WITHIN REACH. WILL CONTINUE TO MONITOR.
[2020-09-08 06:45] VITALS: BP 169/88
[2020-09-08 08:18] VITALS: BP 147/85
--- NOTE | 2020-09-08 10:01 | NUR ---
OSTOMYC CARE; AWAKE, ALERT, SITTING UP CHAIR, POUCH INTACT, NO LEAKAGE, SMALL AMT LIQ BILISH STOOL PRESENT, STATES WAS CHANGED YESTERDAY, WILL CONT TO FOLLOW TECHNICAL SUPPORT ENGINEER AWARE
--- NOTE | 2020-09-08 15:44 | NUR ---
As per we pt is of sound mind to make his
[2020-09-08 17:30] VITALS: BP 179/94
--- NOTE | 2020-09-08 18:19 | NUR ---
Patient told nurse he was wanting to discharge to a jail to get better care than at home. Nurse told therapeutic case manager Bettye about patients request. Once Bettye talked to him he then said he wanting to go home with HH. When the nurse went into the room to give medications, the patient asked the nurse "what do you think I should do" the nurse asked what do you mean? He asked should he go home or to a snf. The nurse stated thats his and his familys choice and that case management can come talk to him about options. He then said " I dont want June and Sonya to be mad at me" "I dont wamt to lose them", the nurse asked the nurse asked case management to come and talk to him. Bettye DARNELL came and talked to him and he chose home with HH.
[2020-09-08 19:53] VITALS: BP 208/114
[2020-09-08 21:57] VITALS: BP 180/81
[2020-09-09 02:41] LABS: HEMATOCRIT 21.9 % (42.0-52.0); HEMOGLOBIN 7.2 gm/dL (14.0-18.0); MCH 30.6 pg (26.0-34.0); MCHC 32.9 g/dL (28.0-37.0); MCV 92.9 fL (80.0-100.0); RBC 2.36 mil/uL (4.50-6.00); RDW 14.6 % (10.5-14.5); WBC 12.6 thou/uL (4.0-11.0)
[2020-09-09 02:59] LABS: CALCIUM 8.4 mg/dL (8.5-10.1); CREATININE 1.2 mg/dL (0.7-1.3); MAGNESIUM 1.4 mg/dL (1.8-2.4); POTASSIUM 3.1 mmol/L (3.5-5.1)
[2020-09-09 03:00] VITALS: BP 162/81
--- NOTE | 2020-09-09 05:31 | NUR ---
patient stoma is pink no s/s of infection. mita in the abd are intact. patient encouraged fluids. patient contient of bladder and uses urinal. fall preacaution in place. patient in bed asleep at this time breathing regular and unlaboured.
[2020-09-09 08:27] VITALS: BP 145/73
--- NOTE | 2020-09-09 11:02 | NUR ---
Patient A/O x 3. Room air. One assist with transfers and ADLS. Puree diet/ nectar thick liquids-tolerating well. Patients cousin came up to visit with him. Up in his chair for breakfast. No pain noted at this time. Tolerating IV abt WELL, NO ADVERSE EFFECTS NOTYED. UI DEVELOPER WITH ANGULAR JS has given him a bed bath.
--- NOTE | 2020-09-09 12:21 | NUR ---
Patients sister June called and spoke with nurse @ 1215pm and wanted an update. Nurse informed her that patient is doing well, tolerating his IV ABT, Tolerating his Pureed and necter thick liquids well. June then stated " Oh no, we can't do that at home", the nurse then explained that no final orders have been written yet for discharge home. That his diet for home has not been wriiten yet but that if it was nectar thick liquids, that its usually sold in most stores. June then stated "Well we won't be able to do the pureed". She then asked the nurse if patient could get a covid vaccine during his stay. Nurse informed her that covid vaccines are not given here but that CARIE could probably give her a list of places that provide the covid vaccine. Nurse told June that the would informed about them not being able to provide a puree diet for patient. June said she will be up here later today. Nurse called Dr. Maza to update her on June unable to provide a puree diet at home and she said to put a order in for a geriatric social work professor. Bettye DARNELL was at the desk and nurse made her aware of the phone call and she will speak with June when she comes up.
[2020-09-09 15:14] VITALS: BP 154/89
--- NOTE | 2020-09-09 16:26 | NUR ---
Nurse advised me in the am that June one of the DPOA had called wanting an update. When nurse mentioned pt is on a pureed diet June stated she cannot do that at home. informed, Dr. Carpenter consulted, deemed pt not having the capacity to make his own descisions. And Sonya who is listed to be #1 in the dpoa documentation is the primary. At this point in time director of mentioned for this case to be managed by MD's at this point. As per Dr. Maza she will wait to reassess pt tomorrow.
[2020-09-09 23:05] VITALS: BP 157/93
--- NOTE | 2020-09-10 05:22 | NUR ---
PATIENT DENIED PAIN OR DISCOMFORT. PATIENT CONTINENT AND USES A URINAL. PATIENT ENCOURAGED FLUIDS. FALL PREACAUTION IN PLACE. PATIENT IN BED ASLEEP AT THIS TIME BREATHING REGULAR AND UNLABOURED.
[2020-09-10 07:35] VITALS: BP 181/88
[2020-09-10 12:42] LABS: ABSOLUTE NEUTROPHILS 5.5 thou/uL (1.4-8.2); BASOPHILS 0.3 % (0.0-2.0); EOSINOPHILS 0.7 % (0.0-3.0); HEMATOCRIT 31.2 % (42.0-52.0); LYMPHOCYTES 9.5 % (24.0-44.0); MCH 29.5 pg (26.0-34.0); MCHC 33.1 g/dL (28.0-37.0); MCV 89.1 fL (80.0-100.0); MONOCYTES 6.2 % (1.0-8.0); PLATELET COUNT 173 thou/uL (150-400); POLYS 83.3 % (36.0-66.0); RBC 3.51 mil/uL (4.50-6.00); RDW 14.2 % (10.5-14.5); WBC 6.6 thou/uL (4.0-11.0)
[2020-09-10 12:58] LABS: ALBUMIN 1.9 g/dL (3.4-5.0); CALCIUM 8.1 mg/dL (8.5-10.1); CREATININE 1.8 mg/dL (0.7-1.3); MAGNESIUM 1.6 mg/dL (1.8-2.4); PHOSPHORUS 1.7 mg/dL (2.6-4.7); POTASSIUM 3.5 mmol/L (3.5-5.1); TOTAL BILIRUBIN 0.3 mg/dL (0.2-1.0); TOTAL PROTEIN 6.1 g/dL (6.4-8.2)
[2020-09-10 13:10] LABS: HEMOGLOBIN 10.3 gm/dL (14.0-18.0)
--- NOTE | 2020-09-10 14:26 | HC ---
[facility] [place] [address] CONSULTATION Name: ISH FRANKEL Room #: 459-P ADM IN M.R.#: [id number] Admission: 09/04/20 Attend Phys: Curt Barrera MD Discharge: Date of : 34 Report #: [id number] THIS REPORT FOR: cc: Pedro Grove MD, Steven A. MD Kerstein, Andrew H. DO ~ DATE OF SERVICE: 09/09/2020 INPATIENT MEDICAL-PSYCHIATRIC CONSULTATION ATTENDING PHYSICIAN: Susy Maza MD CONSULTING PSYCHIATRIST: Alli Johnson DO REASON FOR CONSULTATION: Capacity to make healthcare living decisions. SOURCES OF INFORMATION: Interview with patient, discussion with nurse, Dr. Maza. Chart reviewed. CHIEF COMPLAINT: Unspecified. HISTORY OF PRESENT ILLNESS: This is an 85-year-old black male, disabled, lying in bed on the [address] [place] [address] unit. The patient was watching television. I approached him and introduced myself as a psychiatrist. The patient was unable to tell me the day of the week, told me the month was July, told me year was 1999, told me he was at [facility]. When I asked him why he was hospitalized, he pointed to his abdomen. I asked him what his care needs were, if there was any special diet, he reported he needed to drink water, he needs food, he stated he wanted to go home. He denies suicidal or homicidal ideation, auditory, visual, or tactile hallucinations. PAST MEDICAL HISTORY: Complicated, includes hypertension, recent sigmoid volvulus, status post decompression; pancreatic mass, Parkinson's disease, . ROS: very limitede given delirium- no pain SI/HI. SOCIAL HISTORY: No history of tobacco, alcohol or recreational drug use. Weight is 66.225 kilograms, up from 59.88 at admission. LABORATORY DATA: Today, white count 12.6, up from 11.6 yesterday. H and H of 7.2 and 21.9, relatively stable. Platelet count normal at 232,000. Sodium 147, potassium 3.1, chloride 114, bicarbonate 21, anion gap 12, BUN 7, creatinine 1.2, estimated GFR 70, calcium 8.4, magnesium 1.4. Urinalysis on the 09/04/2020 showed 1+ protein, trace blood, otherwise within normal limits. Toxicology had vancomycin trough on 09/07/2020 of 16. COVID-19 serology was negative on the [address] [address] CONSULTATION Name: ISH FRANKEL Room #: 459-P [facility]#: [id number] Admission: 09/04/20 Attend Phys: Curt Barrera MD Discharge: Date of : 34 Report #: [id number] 09/04/2020. MRSA was positive on the 09/04/2020, he believes that was the nasal swab. MICROBIOLOGY: Blood cultures negative x2. PHYSICAL EXAMINATION: VITAL SIGNS: Today, temperature 36.3, pulse 99, respirations 18, BP 154/89, O2 sat 100%. MUSCULOSKELETAL: Frail black male lying in bed with the head inclined, IV in place. He was requesting that he had to urinate. MENTAL STATUS EXAMINATION: Well-developed, ill-appearing black male appearing to be of stated age. Attention limited. Concentration limited. Speech, slow, soft. mood/affect- congruent constricted Thought process: Linear and goal directed. Thought content - relative poverty of thought. Denied suicidal or homicidal ideation, auditory or visual type hallucinations. Memory known to be impaired, not formally tested. Insight is impaired, judgment is impaired. Fund of knowledge below average. FORMULATION: An 85-year-old black male admitted for abdominal pain, status post recent surgery. Noted by nursing staff of having fluctuation in orientation and insight. DIAGNOSES: At this time, delirium secondary to general medical condition, namely recent surgery, leukocytosis, anemia, electrolyte imbalance. Findings: The findings on the question of capacity, is he lacks capacity to make healthcare and general financial decisions given the patient's orientation to self and impairment in follow through with his care, lack of knowledge of his special diet. Again, the patient lacks capacity at this time. If he has a valid DPOA, this should be enacted at this time and a surrogate decision maker should be making decisions for him. I have relayed this to Dr. Maza, his attending physician, as well as the case reviewer, Bettye, and his nurse. Time spent on this consultation approximately 45 minutes, greater than 50% of time spent reviewing records, [address] [address] CONSULTATION Name: JOSTINISH Miguel Room #: 459-P [facility] IN M.R.#: [id number] Admission: 09/04/20 Attend Phys: Curt Barrera MD Discharge: Date of : 34 Report #: [id number] coordination of care. I will sign off at this time, no further Psychiatric consultation is needed, please notify myself or Dr. Medrano. <ELECTRONICALLY SIGNED> By: Alli Johnson DO 09/10/20 [id number] [id number] Alli Johnson DO /nt
[2020-09-10 15:40] VITALS: BP 162/72
[2020-09-10 16:18] VITALS: BP 181/88
--- NOTE | 2020-09-10 16:31 | NUR ---
Pt is AXOX1. Lethargic. IV running .45 NS in right formearm. Has Coloxotmu putting out soft yellow stool. Pt like to sit up in chair and eat whatever he can get his hands on. Gave additional nector thick OJ, Ice tea, pudding and ice cream. He is up with assist X1. No c/o pain. Gave mag sulfate per order. Bed in low position fall precautions in place. Will monitor until end of shift.
[2020-09-10 20:17] VITALS: BP 156/87
[2020-09-10 20:19] VITALS: BP 147/73
--- NOTE | 2020-09-11 02:17 | NUR ---
PT CARE ASSUMED WITH PT IN BED AT 1900 .PT IS A/O X2.PT IS UP WITH X2 ASSIST TO CHAIR.PT HAS A COLOSTOMY AND USES A URINAL TO VOID .PT IS ON PUREED DIET AND NECTAR THICKEN LIQUID AND MEDS CRUSHED.PT DENIED PAIN .PT IS ON ROOM AIR.IV ACCESS ON RFA WITH 0.45NS AT 75CC/HR.WILL CONTINUE TO MONITOR PER POC
[2020-09-11 06:15] LABS: ABSOLUTE NEUTROPHILS 5.3 thou/uL (1.4-8.2); BASOPHILS 0.7 % (0.0-2.0); EOSINOPHILS 4.7 % (0.0-3.0); HEMATOCRIT 24.1 % (42.0-52.0); MCH 30.3 pg (26.0-34.0); MCHC 32.1 g/dL (28.0-37.0); MONOCYTES 8.5 % (1.0-8.0); POLYS 69.1 % (36.0-66.0); RBC 2.56 mil/uL (4.50-6.00); RDW 15.4 % (10.5-14.5); WBC 7.6 thou/uL (4.0-11.0)
[2020-09-11 06:23] LABS: HEMOGLOBIN 7.7 gm/dL (14.0-18.0); MCV 94.4 fL (80.0-100.0); PLATELET COUNT 276 thou/uL (150-400)
[2020-09-11 06:58] LABS: ALBUMIN 1.9 g/dL (3.4-5.0); CALCIUM 8.2 mg/dL (8.5-10.1); CREATININE 1.2 mg/dL (0.7-1.3); MAGNESIUM 2.1 mg/dL (1.8-2.4); POTASSIUM 4.3 mmol/L (3.5-5.1); TOTAL BILIRUBIN 0.5 mg/dL (0.2-1.0); TOTAL PROTEIN 6.9 g/dL (6.4-8.2)
[2020-09-11 08:07] VITALS: BP 115/114
[2020-09-11 08:08] VITALS: BP 152/80
--- NOTE | 2020-09-11 17:40 | NUR ---
spoke with Patient and MICHELLE Watkins regarding possible peg tube placement. A/O x 2. Room air. One assist with transfers and ADLs. He just needs help with set up for meals and can feed himself. Tolerating puree diet and nectar thick liquids well.
[2020-09-11 19:59] VITALS: BP 185/99
--- NOTE | 2020-09-12 02:58 | NUR ---
PT CARE ASSUMED WITH PT IN BED AT 1900.PT IS A/O X2.PT TRYING TO GET OUT OF BED AND WAS REDIRECTED.PT IS UO WITH X2 ASSIST.PT HAS A COLOSTOMY AND A USES A URINAL TO VOID.IV ACCESS ON RH WITH 0.45NS AT 75CC/HR.PT IS ON PUREED DIET AND NECTAR THICK LIQUIDS.WILL CONTINUE TO MONITOR
[2020-09-12 06:39] LABS: ABSOLUTE NEUTROPHILS 5.4 thou/uL (1.4-8.2); BASOPHILS 0.8 % (0.0-2.0); EOSINOPHILS 3.8 % (0.0-3.0); HEMATOCRIT 24.9 % (42.0-52.0); MCH 30.6 pg (26.0-34.0); MCHC 32.3 g/dL (28.0-37.0); MCV 94.8 fL (80.0-100.0); MONOCYTES 10.1 % (1.0-8.0); PLATELET COUNT 277 thou/uL (150-400); POLYS 67.3 % (36.0-66.0); RBC 2.62 mil/uL (4.50-6.00); RDW 14.8 % (10.5-14.5)
[2020-09-12 07:10] LABS: CALCIUM 8.3 mg/dL (8.5-10.1); CREATININE 1.2 mg/dL (0.7-1.3); MAGNESIUM 1.8 mg/dL (1.8-2.4)
[2020-09-12 07:31] VITALS: BP 125/72; BP 143/74
--- NOTE | 2020-09-12 08:40 | NUR ---
OSTOMY CARE; A&O X2, COOPERATIVE, POUCH EDGES LOOSE, STOMA PINK VIABLE BUDDED W/ LOOSE BROWN STOOL NOTED, PERISTOMAL AREA INTACT, MID LINE ABD INCISION HEALED, CHANGED POUCH USING 2 PIECE CISCO APPLIANCE W/ ADAPT RING UNDER WAFER RECOMMENDATIONS; CHANGE POUCH Q 3-5 DAYS AND PRN, EMTPY PRN STEEL HEATER AWARE
--- NOTE | 2020-09-12 12:24 | NUR ---
Assumed pt care this am vs stable. Maitained on a carb controlled pureed diet with nectar thick liquids. Pt is a set up and is able to feed himslef, minimal intake noted when left on his own. Pt requested for medications to be given later after he ate. At around 10:10 physical therapy had come in his room, pt awake but not responding to commands nor tracking with his eyes. Pt's pupils were none reactive and dilated, was not following commands. Code stroke was called and to was sent down for CT. REport given to [facility] pt was trasnferred to [address] informed to call the family MD cha advised not to call ubtil CTA was back. All belongings , chart and a, meds were sent to [facility]. Endorsed to Terri ([facility] nurse). Pt ran A-flutter on the tele at 8 am.
[2020-09-12 13:17] LABS: ABSOLUTE NEUTROPHILS 5.2 thou/uL (1.4-8.2); EOSINOPHILS 3.8 % (0.0-3.0); HEMATOCRIT 22.9 % (42.0-52.0); HEMOGLOBIN 7.7 gm/dL (14.0-18.0); LYMPHOCYTES 16.1 % (24.0-44.0); MCH 31.3 pg (26.0-34.0); MCHC 33.7 g/dL (28.0-37.0); MCV 92.9 fL (80.0-100.0); MONOCYTES 9.7 % (1.0-8.0); PLATELET COUNT 323 thou/uL (150-400); POLYS 69.4 % (36.0-66.0); RBC 2.47 mil/uL (4.50-6.00); WBC 7.5 thou/uL (4.0-11.0)
[2020-09-12 13:23] LABS: ANION GAP 6 mmol/L (7-16); BUN 7 mg/dL (7-18); CALCIUM 7.8 mg/dL (8.5-10.1); CHLORIDE 105 mmol/L (98-107); CO2 24 mmol/L (21-32); CREATININE 1.2 mg/dL (0.7-1.3); GLUCOSE 109 mg/dL (74-106); POTASSIUM 4.1 mmol/L (3.5-5.1); SODIUM 135 mmol/L (136-145)
--- NOTE | 2020-09-12 13:31 | NUR ---
1100 PT TRANSFERRED FROM 4W POST STROKE, ALERT AND ORIENTED X3, FOLLOWS COMMAND APPROPRIATELY BUT SLOWLY. [facility] ASSESSMENT COMPLETED, AND BEING DONE PER ORDER. PT AM MEDS HELD PER DR. LEPE ORDER. BP MEDS ON HOLD. MRI ORDER D/C DUE TO FAMILY REFUSING, DR. LEPE AWARE. COLOSTOMY IN PLACE. FALL PRECAUTIONS IN PLACE. DR. LEPE STATED SHE WILL NOTIFY PT FAMILY. WILL CONTINUE TO MONITOR
[2020-09-12 13:32] LABS: APTT 27.6 Seconds (24.5-32.8); INR 1.04; PROTIME 11.3 Seconds (10.5-12.1)
[2020-09-12 13:34] LABS: SGOT 9 U/L (15-37); TOTAL BILIRUBIN 0.4 mg/dL (0.2-1.0); TOTAL PROTEIN 6.8 g/dL (6.4-8.2); TROPONIN-I <0.06 ng/mL (<0.06)
[2020-09-12 13:50] LABS: SGPT 6 U/L (30-65)
[2020-09-12 15:42] VITALS: BP 139/66
--- NOTE | 2020-09-12 16:57 | NUR ---
PT HAD CODE STROKE CALLED THIS AFTERNOON. PT WAS TRANSFERED TO 3W ROOM 358. PHYSICIAN INDICATED THAT SHE HAD SPOKEN WIHT PT'S SISTER IN LAW EDMAR AND THAT THEY SEEM TO BE FAVORING HOME WITH PALLIATIVE CARE AND THERE IS TALK OF POSSIBLE PEG. CM TO FOLLOW UP WITH YOLANDE TO DETERMINE WISHES FOR DISCHARGE PLANNING NEEDS. ST SAW PT AND HE IS ON PUREED THICKENDED LIQUIDS. CM FOLLOWING REGARDING DC PLANNING.
[2020-09-12 19:33] VITALS: BP 140/71
--- NOTE | 2020-09-12 21:43 | NUR ---
PROVIDER CALLED TO ASK FOR MUCINEX CHANGE TO LIQUID AND ORDER TO CRUSH ANTIBIOTIC.
[2020-09-13] VITALS (8 sets, daily range): BP systolic 115–176; BP diastolic 57–99
--- NOTE | 2020-09-13 02:04 | NUR ---
PT ALERT AND ORIENTED X1. SIDERAILS UPX3. CHECKING PT FRQUENTLY. NIH SCALE DIFFERENT FROM PREVIOS DAY SHIFT NS ASSESSMENT.PT IS ANOT ABLE TO READ WORDS AND CAN NOT VEBALIZE MOST OF PICTURES, NOTIFIED LENS MOUNTER . LENS MOUNTER CAME UP TO SEE PT AND EVAULATED PT. HE HAS DEMENTIA AND PARKINSONS. HE IS FORGETFUL REGARDING WORDS AND HAS TROUBLE FOLLOWING COMMANDS. PT UNABLE TO UNDERSTAND NS COMMANDS DUE TO DEMENTIA SO NIH SCORE IS AFFECTED. PT IS UNABLE TO READ. NO ORDERS FROM LENS MOUNTER. HELD BP MEDS ORDERED. ASKED PHARMACY TO CHANGE MEDS HAT CANNOT BE CRUSHED TO APPROPRIATE FORM. BED DOWN. CALL LIGHT IN REACH. BED ALARM IS ON.
[2020-09-13 05:04] LABS: URINE BILIRUBIN NEGATIVE (Negative); URINE BLOOD NEGATIVE (Negative); URINE CLARITY CLEAR; URINE COLOR YELLOW; URINE GLUCOSE-RANDOM* NEGATIVE (Negative); URINE KETONES NEGATIVE (Negative); URINE LEUKOCYTES NEGATIVE (Negative); URINE NITRITE NEGATIVE (Negative); URINE PROTEIN (DIPSTICK) NEGATIVE (Negative); URINE UROBILINOGEN 0.2 E.U./dl (0.2-1.0)
--- NOTE | 2020-09-13 05:26 | NUR ---
PT PROGRESSING TOWARDS D/C GOALS. VSS AFEBRILE. UNLABORED ON RA. CONFUSED. UNABLE TO FOLLOW NIH SCALE REQUESS FULLY DUE TO DEMENTIA. NO S/S TIA OR STROE NOTED TONIGHT. UA SENT TO LAB
[2020-09-13 06:08] LABS: CHOLESTEROL 112 mg/dL (<200); HDL CHOLESTEROL 30 mg/dL (>40); LDL CHOLESTEROL 65 mg/dL (<100); TC:HDL 3.7 Ratio (Not establshd); TRIGLYCERIDE 89 mg/dL (<150); VLDL 18 mg/dL (<40)
[2020-09-13 06:11] LABS: SERUM ASSESSMENT Clear
[2020-09-13 07:08] LABS: GLYCOHEMOGLOBIN (HGB A1C) 5.2 % (4.8-5.6)
--- NOTE | 2020-09-13 09:31 | NUR ---
CM SPOKE WITH PT'S NURSE THIS AM. DR. LEPE HAD SPOKEN WITH PT'S JESSI HYATT AT BEDSIDE YESTERDAY. CM CALLED PIERO WANG THIS AM AND GOT HER VOICEMAIL. CM CALLED PT'S FRIEND MICHELLE SHAVER . SHE INDICATED THAT THEY ARE INTERESTED IN HAVING PT RETURN HOME AND ELECTING HOSPICE SERVICES. CM EXPLAINED HOW HOSPICE SERVICES WORK IN THE HOME SETTING. CANDY INDICATED THAT FAMILY CONFERES WITH AN RN NAMED MODESTO RUIZ. SHE ASKED IF SHE COULD CALL CM TO INDICATE PREFERANCE FOR HOSPICE PROVIDER. CM INDICATED THAT WOULD BE FINE BUT THAT CM CAN'T SHARE ANY INFO WITH HER. SHE EXPRESSED UNDERSTANDING. CM AWAITING CALL FROM MODESTO RUIZ AND RETURN CALL FROM EDMAR.
--- NOTE | 2020-09-13 17:16 | NUR ---
assumed care of pt at 0700. pt alert and oriented to self, pleasant, able to follow simple commands. otherwise confused about current situation. eating small amounts. cooperative with meds. evaluated by hospice rep today. vitals stable. uneventful on telemetry. no other changes to report.
[2020-09-14 03:42] VITALS: BP 124/76
--- NOTE | 2020-09-14 04:15 | NUR ---
Pt transferred from 3W approx 2300. A/OX2,pleasant with staff and able to make needs known. VSS.Denies pain on assessment. Voiding per urinal. SR on telemetry. Colostomy in place,patent with soft brown BM. On a nectar thick/puree diet. Fall precautions in place,frequent checks on pt.
[2020-09-14 07:19] VITALS: BP 124/49
--- NOTE | 2020-09-14 07:37 | EKG ---
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 [employer] Grain: ALINA : 1935 Requested By: Curt Barrera Order Number: [id number] MD: Antelmo Lee Measurements Intervals [place] Rate: 74 P: 0 CA: 52 QRS: -14 QRSD: 95 T: 256 QT: 453 QTc: 503 Interpretive Statements Sinus rhythm Short CA interval Left ventricular hypertrophy Compared to ECG 09/04/2020 00:46:20 Short CA interval now present Left ventricular hypertrophy now present Sinus tachycardia no longer present Atrial premature complex(es) no longer present T-wave abnormality no longer present Prolonged QT interval no longer present Electronically Signed On 09-14-2020 7:37:04 CDT by Antelmo Lee [email or web address] <ELECTRONICALLY SIGNED> By: Antelmo Lee MD, FAC 09/14/20 0737 1224 1224 Antelmo Lee MD, [facility] /EPI
--- NOTE | 2020-09-14 09:35 | NUR ---
Pt going on hospice services. Defer further nutrition followup at this time
[2020-09-14 09:41] VITALS: BP 124/49
[2020-09-14 13:38] VITALS: BP 124/49
--- NOTE | 2020-09-14 13:49 | NUR ---
Pt was AXOx2 able to follow commands. Uses urinal. Has colostomy putting out soft brown stool. Lung sounds are diminished. On nectar thick pureed diet. Running NSR on telemetry. Remains a high fall risk is up with assist X1. Bed in low position. Fall precautions in place. Call light within reach. No c/o pain on todays shift.
[2020-09-14 15:24] VITALS: BP 120/59
--- NOTE | 2020-09-14 16:32 | NUR ---
[facility] HOSPICE NURSE AND SW WORKED TO MEET WITH PT'S JESSI HYATT TO ARRANGE EQUIPTMENT DELIVERY AND SIGNING OF CONSENTS. EQUIPTMENT WAS DELIVERED AROUND 1400. CONSENTS SIGNED LATER THIS AFTERNOON. CM FAXED DC ORDERS AND OUTSIDE HOSPITAL DNR FORM TO [facility] . CM ARRANGED [facility] AND THEY INDICATED THEY CAN PICK PT UP AFTER 1700 BUT COULDN'T GIVE ME A MORE DEFINITIVE TIME OF ARRIVAL. CM NOTIFIED HOSPICE NURSE. SHE ASKED THAT NURSE CALL THE OFFICE AT TO NOTIFY THEM OF TIME OF [facility] ARRIVAL. THEY WILL NOTIFY ANTONY ADMISSION NURSE WHO WILL MEET PT AT THE HOME. NO OTHER CM INTERVNETION INDICATED. CASE CLOSED.
--- NOTE | 2020-09-16 12:12 | EEG ---
[facility] [place] [address] ELECTROENCEPHALOGRAM Name: ISH FRANKEL Room #: 457-P [facility] IN M.R.#: [id number] Admission: 09/04/20 Attend Phys: Curt Barrera MD Discharge: 09/14/20 Date of : 34 Report #: [id number] THIS REPORT FOR: //name// DATE OF SERVICE: 09/12/2020 This patient is being evaluated for altered mental status. EEG was done by placing the electrode by standard 10-20 system of electrode placement. Both referential and sequential montages were used for recording. Background activity is about 7 Hz and 30 microvolt. The patient went to sleep that is associated with bilateral slowing and vertex sharp waves. Photic stimulation is unremarkable. Throughout the record, no active epileptiform activity was noticed. IMPRESSION: This patient's EEG is slow and poorly formed, that is a nonspecific abnormality which can occur with dementia, encephalopathy, effect of psychotropic medication, etc. Clinical correlation is recommended. <ELECTRONICALLY SIGNED> By: Demar Vo MD 09/16/20 1212 1304 1328 Demar Vo MD /nt
--- NOTE | 2020-09-16 12:12 | HC ---
[facility] [place] [address] CONSULTATION Name: ISH FRANKEL Room #: 457-P [facility] IN .R.#: [id number] Admission: 09/04/20 Attend Phys: Curt Barrera MD Discharge: 09/14/20 Date of : 34 Report #: [id number] THIS REPORT FOR: cc: Pedro Grove MD, Steven A. MD Khosla,Demar Reardon MD ~ DATE OF SERVICE: 09/12/2020 HISTORY OF PRESENT ILLNESS: This is an 85-year-old male patient who was evaluated formally by me for the possibility of stroke. I initially talked to the talent coordinator and subsequently talked to her multiple times. I talked to the nurse looking after this patient. I discussed the patient with Dr. Maza who is the hospitalist today. Subsequently, I called the contact listed in this patient's chart June Jarvis. She did not answer the phone. Then, I called Sonya Martin, the other person listed in the chart as a contact. She did talk to me. She said she and June Jarvis both are durable power of sports attorney with equal pena, but the patient lives with Joan Jarvis. The history I get in this patient is that he has speech issues going on for several years. His memory is progressively declining. They thought it was because of dementia. He did not know if he saw a neurologist or not. She also did not know who diagnosed him with Parkinson disease. He does many things of daily living by himself and the family has to help him with other things like taking shower. He was noticed to have more slurred speech and there was some question of weakness on the left side and also on the right side later on. I was in [place]. When I came to see this patient in [place]'s looks like he has much improved. The nurses who examined this patient, Dr. Maza, who examined the patient earlier, and the talent coordinator everybody think the patient has significantly improved. Whether he is back to the baseline or not is not clear. The patient thinks he is back to the baseline. REVIEW OF SYSTEMS: Pretty extensive. He was admitted with dysphagia, the cause of which is not clear. He has acute kidney injury. He had pneumonia when he was admitted, he had a colostomy done and that was apparently within a week. Does have a history of hypertension and Parkinson disease. He apparently had some malnutrition, prostate problem as I understand. He also has pancreatic problems. I carried out the 14-point review of systems. This is the best I can carry out. PAST MEDICAL HISTORY: Positive for Parkinson disease and what looks like dementia. His albumin is very low and I think he has some malnutrition. His GFR was 70 today, so they did a CT stroke protocol. I was not aware of it that he has kidney problems in the past, but he was having pretty profound symptoms of the stroke, so I am going to him a 500 mL bolus of normal saline and we may have to give him some maintenance fluids. PAST MEDICAL HISTORY: Negative for stroke. [facility] [address] [place] [address] CONSULTATION Name: ISH FRANKEL Room #: 457-P DIS IN M.R.#: [id number] Admission: 09/04/20 Attend Phys: Curt Barrera MD Discharge: 09/14/20 Date of : 34 Report #: [id number] FAMILY HISTORY: Unremarkable. SOCIAL HISTORY: As described above. He lives with the family and multiple family members to help him. PHYSICAL EXAMINATION: On my exam he is alert. It takes him a little while to talk. When he talks, he says he is feeling beautiful and it is August and it is [facility], but looks to me as about his baseline. His cranial nerve examination, the best I can tell, does not show any facial palsy, but I can tell about the hemianopsia. To me, he moves all 4 extremities and difficult to tell whether there is any asymmetry there or not. His position sense is difficult to carry out. Reflexes, he does not relax. I do not think he has much ataxia in the upper extremity. I could not look at the fundus. He is a thin individual. His hearing and vision looks okay. VITAL SIGNS: His blood pressure is only 125/72, respirations 19, pulse is 74. LABORATORY DATA: He is anemic at hemoglobin of 8.0. GFR is normal. Last time, his vitamin D was checked, it was very low as vitamin B12 was low. His TSH was okay. His pulses are difficult to feel, but he does not have any edema, thyroid mass or carotid bruit. IMPRESSION AND PLAN: Pretty difficult to form in this patient. He did have stroke-like symptoms and as I understand from the talent coordinator, the symptoms were pretty prominent and they did a CT angiogram, which was basically unremarkable. I called and talked to the sister who says she is equal durable power of sports attorney. I discussed with them the TPA and they do not want the TPA and that may be the right thing to do in this patient as symptoms are mostly improved and he had surgery within 7 days and we have to make an exception and we will be going off level indication. I think we will give him some fluid. His kidney function needs to be watched because he got some dye. We will just see how he does. Thank you very much for this referral. More than 50 minutes of time was spent taking care of this patient and majority was spent counseling and coordinating. <ELECTRONICALLY SIGNED> By: Demar Vo MD 09/16/20 1212 1140 [id number] Demar Vo MD /nt
== END 2020-09-14 18:40 | disposition hospice, home (50) | DRG 871 ==
LOC: ER 00:32 → EROBS 04:21 → 4W 04:21 → EROBS 04:54 → 4W 06:28 → 3W 09-12 11:00 → 4W 09-13 23:15
PROVIDERS: Emergency Medicine; Internal Medicine; Nurse Practitioner Family; Specialist; ADMIT Hospitalist; ATTEND Hospitalist
PROC: B3251ZZ Computerized Tomography (CT Scan) of Bilateral Common Carotid Arteries using Low Osmolar Contrast (ICD-10-PCS; principal; 2020-09-12)
PROC: B3281ZZ Computerized Tomography (CT Scan) of Bilateral Internal Carotid Arteries using Low Osmolar Contrast (ICD-10-PCS; principal; 2020-09-12)
PROC: B32G1ZZ Computerized Tomography (CT Scan) of Bilateral Vertebral Arteries using Low Osmolar Contrast (ICD-10-PCS; principal; 2020-09-12)
DX: A41.9 Sepsis, unspecified organism (principal); J18.9 Pneumonia, unspecified organism; K56.2 Volvulus; J96.21 Acute and chronic respiratory failure with hypoxia; G92 Toxic encephalopathy; E43 Unspecified severe protein-calorie malnutrition; F05 Delirium due to known physiological condition; T17.590A Other foreign object in bronchus causing asphyxiation, initial encounter; N17.9 Acute kidney failure, unspecified; G45.9 Transient cerebral ischemic attack, unspecified; E87.0 Hyperosmolality and hypernatremia; Z20.822 Contact with and (suspected) exposure to COVID-19; F03.90 Unspecified dementia, unspecified severity, without behavioral disturbance, psychotic disturbance, mood disturbance, and anxiety; E78.5 Hyperlipidemia, unspecified; G20 Parkinson's disease; F02.80 Dementia in other diseases classified elsewhere, unspecified severity, without behavioral disturbance, psychotic disturbance, mood disturbance, and anxiety; R53.81 Other malaise; D50.9 Iron deficiency anemia, unspecified; E53.8 Deficiency of other specified B group vitamins; E55.9 Vitamin D deficiency, unspecified; E87.6 Hypokalemia; K86.9 Disease of pancreas, unspecified; K86.89 Other specified diseases of pancreas; N18.2 Chronic kidney disease, stage 2 (mild); I12.9 Hypertensive chronic kidney disease with stage 1 through stage 4 chronic kidney disease, or unspecified chronic kidney disease; E87.8 Other disorders of electrolyte and fluid balance, not elsewhere classified; R13.10 Dysphagia, unspecified; Z93.3 Colostomy status; X58.XXXA Exposure to other specified factors, initial encounter; Y93.89 Activity, other specified; Y92.89 Other specified places as the place of occurrence of the external cause; Y99.8 Other external cause status; Z68.27 Body mass index [BMI] 27.0-27.9, adult; Z79.82 Long term (current) use of aspirin; Z79.899 Other long term (current) drug therapy
CPT/HCPCS: 10045; 10879

== ENCOUNTER 2021-02-23 17:15 | Emergency (ER) | payer OTHER ==
[~2021-02-23] VITALS: Ht 180.3 cm; Wt 59.0 kg
--- NOTE | ~2021-02-23 | EMS ---
[address] [address] EMS Patient Care Report Name: ISH FRANKEL Room #: REG BILLY Ruiz#: [id number] Admission: 02/23/21 Attend Phys: Discharge: Date of : 34 Report #: [id number] THIS REPORT FOR: //name// Report Transmitted: 02/23/2021 17:16 EMS Care Summary [place], [place]/[facility] Incident [id number] @ 02/23/2021 16:30 Incident Location [address] [place], [place] [id number] Patient ISH FRANKEL Male, 85 Years 1935 Patient Address [address] [place] [address] Patient History Cancer, Unspecified,Dementia,Kidney/Renal Failure,Parkinson's Disease,Colostomy, Patient Allergies No known allergies, Patient Medications Atorvastatin, Atrovent, Sinemet, Losartan, Aspirin, Chief Complaint Syncope Disposition Transported No Lights/[place] Reason Unconscious/Fainting Transported To [facility] Narrative M537, P30 responded immediately to the scene of an Unconscious. P30 arrived first on scene and initiated ALS care. Upon arrival, pt found alert and sitting in recliner. Pt's daughter reports [facility] [address] [place] [address] EMS Patient Care Report Name: ISH FRANKEL Room #: REG BILLY Ruiz#: [id number] Admission: 02/23/21 Attend Phys: Discharge: Date of : 34 Report #: [id number] coming over to check on pt when pt stopped responding, eyes closed, and he "just laid back." Unresponsive for about 2 minutes. Initially, family reports only that pt has home health nurse who has already been there today and everything was normal. Daughter does report that when pt beings to become dehydrated, he "Goes down quick." Baseline vitals already obtained. Pt denies of any complaints. Vitals repeated and still showing significant hypotension. Advised family that with his BP as low as it is, he needs an IV, fluid replacement, and labwork to make sure the BP isn't low due to possible internal bleeding. They agree and request pt go to [facility]. P30 carries pt out to cot, secured on, then moved to back of ambulance. While gathering medication list, it is discovered pt is actually on hospice care for pancreatic cancer. Advised family to make sure and call hospice service to updated them pt is going to ER. In back of ambulance, primary ALS assessment performed, vitals repeated. First 20g saline lock attempt failed. Second attempt secured a 20g saline lock in R hand/wrist, then 500mL NS bolus began. BGL established. Transport to then initiated. Contacted with a 5 minute ETA, and report given. Pt remains stable throughout transport. Vitals monitored with noted improvement in BP after NS bolus. Arrived at and pt to ER 17. Report to RN then care released. Initial Vitals @17:01P: 72,R: 18,BP: 113/66,Glucose: 133,SpO2: 97, @PTAP: 78,R: 15,BP: 62/41,Pain: 0/10,GCS: 14,SpO2: 97,Revised Trauma: 10, @16:40P: 83,R: 16,BP: 64/43,GCS: 14,SpO2: 98,Revised Trauma: 10, Assessments @16:48MENTAL:Confused,Person Oriented,Place Oriented,SKIN:HEENT:LUNG SOUNDS:ABDOMEN:PELVIS//GI:EXTREMITIES:Left Leg: Weakness,Right Leg: Weakness,Left Arm: No Abnormalities,Right Arm: No Abnormalities,PULSE:Radial: 1+ Thready,Carotid: 2+ Normal,NEURO:No Abnormalities, Impression Hypotension Procedures @16:48 ALS Assessment Response: UnchangedSucceeded @16:46 IV Therapy - Saline Lock 0cc (20 ga) Site: Antecubital-Left Response: UnchangedFailed @16:51 IV Therapy - Saline Lock 5cc (20 ga) Site: Hand-Right Response: UnchangedSucceeded @16:53 IV Bolus - Normal Saline (.9% NaCl) 500cc (20 ga) Site: Hand-Right Response: [place] [address] EMS Patient Care Report Name: ISH FRANKEL Room #: BETH Ruiz#: [id number] Admission: 02/23/21 Attend Phys: Discharge: Date of : 34 Report #: [id number] Timeline STAIR BUILDER,BP: 62/41 M,PULSE: 78,RR: 15 R,SPO2: 97 Ox,ETCO2: ,BG: ,PAIN: 0,GCS: 14, 16:28,Call Received 16:28,Dispatch Notified 16:30,Dispatched 16:32,En Route 16:37,On Scene 16:38,At Patient 16:40,BP: 64/43 M,PULSE: 83,RR: 16 R,SPO2: 98 Ox,ETCO2: ,BG: ,PAIN: ,GCS: 14, 16:46,IV Therapy - Saline Lock 0cc 20 ga Site: Antecubital-Left,Response: UnchangedFailed, 16:48,ALS Assessment,Response: UnchangedSucceeded, 16:51,IV Therapy - Saline Lock 5cc 20 ga Site: Hand-Right,Response: UnchangedSucceeded, 16:53,IV Bolus - Normal Saline (.9% NaCl) 500cc 20 ga Site: Hand-Right,Response: ImprovedSucceeded, 16:55,Depart Scene 17:01,BP: 113/66 M,PULSE: 72,RR: 18 R,SPO2: 97 Ox,ETCO2: ,B,PAIN: ,GCS: , 17:10,At Destination 17:25,Call Closed Disclaimer v1.1 Copyright 2021 [employer] This EMS Care Summary contains data elements from the applicable legal record (which may be displayed differently). It is designed to provide pertinent information for the following purposes: continuity of care, clinical quality, and state data reporting. The complete legal record is available to ED staff and administrators of the receiving hospital in [employer]'s Patient Tracker. All data is provided "as is."
[2021-02-23 17:40] LABS: ABSOLUTE NEUTROPHILS 6.2 thou/uL (1.4-8.2); BASOPHILS 0.4 % (0.0-2.0); EOSINOPHILS 1.1 % (0.0-3.0); HEMATOCRIT 31.6 % (42.0-52.0); HEMOGLOBIN 10.1 gm/dL (14.0-18.0); LYMPHOCYTES 14.5 % (24.0-44.0); MCH 31.5 pg (26.0-34.0); MCHC 31.8 g/dL (28.0-37.0); MCV 98.9 fL (80.0-100.0); MONOCYTES 10.5 % (1.0-8.0); PLATELET COUNT 217 thou/uL (150-400); POLYS 73.5 % (36.0-66.0); RDW 13.4 % (10.5-14.5); WBC 8.4 thou/uL (4.0-11.0)
[2021-02-23 17:52] LABS: URINE BILIRUBIN NEGATIVE (Negative); URINE BLOOD 2+ (Negative); URINE CLARITY CLEAR; URINE COLOR YELLOW; URINE GLUCOSE-RANDOM* NEGATIVE (Negative); URINE KETONES NEGATIVE (Negative); URINE LEUKOCYTES-REFLEX NEGATIVE (Negative); URINE NITRITE-REFLEX NEGATIVE (Negative); URINE PROTEIN (DIPSTICK) NEGATIVE (Negative); URINE UROBILINOGEN 0.2 E.U./dl (0.2-1.0)
[2021-02-23 18:05] LABS: CALCIUM 9.3 mg/dL (8.5-10.1); CREATININE 2.2 mg/dL (0.7-1.3); POTASSIUM 5.4 mmol/L (3.5-5.1)
[2021-02-23 18:15] LABS: ALBUMIN 2.9 g/dL (3.4-5.0); TOTAL BILIRUBIN 0.5 mg/dL (0.2-1.0); TOTAL PROTEIN 7.9 g/dL (6.4-8.2)
[2021-02-23 18:22] LABS: CASTS None Seen /LPF (None Seen); SQUAMOUS 0-3 Few /LPF (0-3); TRANSITIONAL EPITHEL CELL 4-10 Moderate /LPF (None Seen); URINE WBC-REFLEX 0-5 Rare /HPF (0-5)
[2021-02-23 18:23] LABS: BACTERIA-REFLEX None Seen /HPF (None Seen); CRYSTALS None Seen /LPF (None Seen)
[2021-02-23 18:24] LABS: MUCUS 0-3 Light strn/LPF (None Seen)
[2021-02-23] MEDS ORDERED: CIPROFLOXACIN500 M1 PO (18:49)
[2021-02-23 20:21] VITALS: BP 158/71
--- NOTE | 2021-02-24 08:02 | EKG ---
[place] [address] [facility] [place] [address] ELECTROCARDIOGRAM REPORT Name: ISH FRANKEL Room #: DEP Sara#: [id number] Admission: 02/23/21 Attend Phys: Discharge: 02/23/21 Date of : 34 Report #: [id number] [facility] ED Test Date: 2021-02-23 Test Time: 17:31:37 Pat Name: ISH FRANKEL Department: Room: Gender: M Hand Packager: JUAN JOSE : 1935 Requested By: Derik Galdamez Order Number: [id number] MD: Antelmo Lee Measurements Intervals [place] Rate: 75 P: 15 GA: 60 QRS: 37 QRSD: 91 T: 27 QT: 395 QTc: 442 Interpretive Statements Sinus rhythm Short GA interval Probable left atrial enlargement Probable left ventricular hypertrophy Baseline wander in lead(s) II Compared to ECG 09/12/2020 12:24:56 No significant changes Electronically Signed On 02-24-2021 8:01:45 [employer] by Antelmo Lee [email or web address] <ELECTRONICALLY SIGNED> By: Antelmo Lee MD, [facility] 02/24/21 0801 30 30 Antelmo Lee MD, FACC /EPI
== END 2021-02-23 20:22 | disposition home or self-care (01) ==
LOC: ER 17:15
PROVIDERS: Emergency Medicine
DX: E86.0 Dehydration (principal); E87.5 Hyperkalemia; J18.9 Pneumonia, unspecified organism; I10 Essential (primary) hypertension; E78.5 Hyperlipidemia, unspecified; Z79.899 Other long term (current) drug therapy

== ENCOUNTER 2021-02-25 16:49 | Emergency (ER) | payer OTHER ==
[~2021-02-25] VITALS: Ht 180.3 cm; Wt 59.0 kg
--- NOTE | ~2021-02-25 | EMS ---
[facility] [address] [place] [address] EMS Patient Care Report Name: ISH FRANKEL Room #: DEP BILLY Ruiz#: [id number] Admission: 02/25/21 Attend Phys: Discharge: 02/25/21 Date of : 34 Report #: [id number] THIS REPORT FOR: //name// Report Transmitted: 02/28/2021 10:30 EMS Care Summary [place], [place]/[facility] Incident [id number] @ 02/25/2021 16:13 Incident Location [address] [place], [place] [id number] Patient ISH FRANKEL Male, 85 Years 1935 Patient Address [address] [place] [address] Patient History Cancer, Unspecified,Dementia,Kidney/Renal Failure,Parkinson's Disease,Colostomy, Patient Allergies No known allergies, Patient Medications Aspirin, Atorvastatin, Sinemet, Losartan, Atrovent, Chief Complaint head and neck pain Disposition Transported No Lights/[place] Reason Headache Transported To [facility] Narrative 85 y/o fall pt Upon arrival the pt was face down on the ground next to the bed. The pt is awake, conscious A&O x 4 with a GCS of 15. He has a patent airway, breathing [facility] [address] [place] [address] EMS Patient Care Report Name: ISH FRANKEL Room #: DEP ER Sara#: [id number] Admission: 02/25/21 Attend Phys: Discharge: 02/25/21 Date of : 34 Report #: [id number] is normal, and has a strong reg radial pulse. The pt was getting up off the bed when he slipped and fell. He denies LOC. He doesn't take blood thinners. The pt is c/o neck and head pain and rates it a 10/10. A C-Collar was placed on the pt. There were no obvious injuries to his head or neck upon visualization, palpation or when the pt is moved. The pt was placed on a shun grip boss and carried out of the residence placed on the cot in a position of comfort, secured to the cot, and loaded into the ambulance. VS were obtained, D-120 The pt was transported to [place] per the pt's family request. There were no incidents or changes with the pt during transport. The pt was taken to a hallway bed, report was given and EMS returned to service. Initial Vitals @16:31P: 60,BP: 152/79,SpO2: 94, @16:28P: 59,R: 12,BP: 139/71,Pain: 10/10,GCS: 15,Glucose: 120,SpO2: 98,Revised Trauma: 12, Assessments @16:32MENTAL:Event Oriented,Time Oriented,Person Oriented,Place Oriented,SKIN:HEENT:Head/Face: No Abnormalities,Neck/Airway: No Abnormalities,LUNG SOUNDS:General: No Abnormalities,ABDOMEN:General: No Abnormalities,PELVIS//GI:No Abnormalities,EXTREMITIES:Capillary Refill: Left Upper: < 2 Sec,Capillary Refill: Right Upper: < 2 Sec,Left Arm: No Abnormalities,Right Arm: No Abnormalities,Left Leg: No Abnormalities,Right Leg: No Abnormalities,PULSE:Radial: 2+ Normal,NEURO:No Abnormalities, Impression Injury of Head Procedures @16:21 ALS Assessment Response: UnchangedSucceeded @16:37 C-Spine Clearance Response: Unchanged @16:28 C-Spine Clearance Response: Unchanged Timeline 16:11,Call Received 16:11,Dispatch Notified 16:13,Dispatched 16:15,En Route 16:20,On Scene 16:21,At Patient 16:21,ALS Assessment,Response: UnchangedSucceeded, 16:28,C-Spine Clearance,Response: Unchanged 16:28,BP: 139/71 M,PULSE: 59,RR: 12 R,SPO2: 98 Ox,ETCO2: ,B,PAIN: 10,GCS: 15, 16:31,[place] [address] EMS Patient Care Report Name: ISH FRANKEL Room #: DEP [facility]#: [id number] Admission: 02/25/21 Attend Phys: Discharge: 02/25/21 Date of : 34 Report #: [id number] 16:31,BP: 152/79 M,PULSE: 60,RR: R,SPO2: 94 Ox,ETCO2: ,BG: ,PAIN: ,GCS: , 16:37,C-Spine Clearance,Response: Unchanged 16:46,At Destination 16:56,Call Closed Disclaimer v1.1 Copyright 2021 [employer] This EMS Care Summary contains data elements from the applicable legal record (which may be displayed differently). It is designed to provide pertinent information for the following purposes: continuity of care, clinical quality, and state data reporting. The complete legal record is available to ED staff and administrators of the receiving hospital in [employer]'s Patient Tracker. All data is provided "as is."
[~2021-02-25 16:49] MED LIST changes: +CIPROFLOXACIN500 M1 PO
[2021-02-25 22:53] VITALS: BP 165/80
== END 2021-02-25 22:55 | disposition home or self-care (01) ==
LOC: ER 16:49
DX: E86.0 Dehydration (principal); E78.5 Hyperlipidemia, unspecified; I10 Essential (primary) hypertension; G20 Parkinson's disease; Z79.82 Long term (current) use of aspirin; Z79.899 Other long term (current) drug therapy; Z79.891 Long term (current) use of opiate analgesic; W06.XXXA Fall from bed, initial encounter; Y93.89 Activity, other specified; Y92.89 Other specified places as the place of occurrence of the external cause; Y99.8 Other external cause status